=== PATIENT | male | born 1965 | race Caucasian/White ===

== ENCOUNTER 2018-08-02 09:09 | Inpatient (IN) | payer MEDICAID ==
[2018-08-02] MEDS ORDERED: Ondansetron 4 MG/2 ML SDV IVPUSH ONE (09:26)
[2018-08-02] MEDS ORDERED: Sodium Chloride 0.9% 1,000 ML IV ONE (09:26)
[2018-08-02] MEDS ORDERED: Ketorolac 15 MG/ML SDV IVPUSH ONE (09:27)
[2018-08-02] MEDS ORDERED: HYDROmorphone 1 MG/ML Syringe IVPUSH ONE ×2 (09:27→10:31)
[2018-08-02 10:23] LABS: CHLORIDE,CL 107 mmol/L (98-107); SODIUM,NA 143 mmol/L (136-145)
[2018-08-02 10:33] LABS: ANION GAP 14.8 mmol/L (10-20)
[2018-08-02] MEDS ORDERED: Iopamidol 612 MG/ML 100 ML Bottle IVPUSH ONE (10:37)
--- NOTE | 2018-08-02 10:48 | EDM.PDOC ---
ED HPI GENERAL MEDICAL PROBLEM - General Chief Complaint: Abdominal Pain Stated Complaint: ABDOMINAL PAIN Time Seen by Provider: 08/02/18 09:15 Source of Information: Reports: Patient, Family History Limitations: Reports: No Limitations - History of Present Illness INITIAL COMMENTS - FREE TEXT/NARRATIVE: Pt. presents to ER with complaints of severe abdominal pain start started at approx. 0300 this AM. It was accompanied by bilious emesis. Denies any dark colored urine or light stools. He states that he has had similar pain in the past when he had pancreatitis. Last episode was in 2012. He states that he has not been experiencing any sweats. No substernal chest pain. No shortness of breath. Pt. states that he did eat a fatty meal yesterday. He states that he has had no issues with postprandial abdominal pain. He states he still has his gallbladder. Pt. denies any bloody or dark stools/vomitus. He states that he drinks frequently (approx. 3-4 drinks per night most nights but states that he has not consumed any alcohol for 1 week. His clinic docmentation shows that he has a history of fatty liver disease. Denies any recent medications changes or additions. Onset: Today Onset Date: 08/02/18 Onset Time: 02:00 Location: Reports: Abdomen Quality: Reports: Ache, Burning, Stabbing Severity: Severe Lower Abdominal Pain Score (Numeric/FACES): 10 - Related Data Allergies Allergy/AdvReac Type Severity Reaction Status Date / Time No Known Allergies Allergy Verified 08/02/18 09:27 Home Meds: Home Meds Aspirin [Aspirin EC] 325 mg DAILY 08/02/18 [History] Halobetasol Propionate [Ultravate] 1 applic BID 08/02/18 [History] Hydrocodone/Acetaminophen [Hydrocodon-Acetaminophen 5-325] 0.5 tab PO BID [History] Lisinopril 20 mg DAILY 08/02/18 [History] Metoprolol Succinate [Toprol XL] 200 mg DAILY 08/02/18 [History] Triamcinolone Acetonide [Triamcinolone Acetonide 0.1% Crm] 1 applic BID [History] levETIRAcetam [Keppra] 500 mg BID 08/02/18 [History] ED ROS GENERAL - Review of Systems Review Of Systems: See Below Constitutional: Reports: Chills. Denies: Diaphoresis HEENT: Reports: No Symptoms Respiratory: Reports: No Symptoms Cardiovascular: Reports: No Symptoms Endocrine: Reports: No Symptoms GI/Abdominal: Reports: Abdominal Pain, Decreased Appetite, Nausea, Vomiting. Denies: Black Stool, Bloody Stool, Hematemesis, Hematochezia, Melena : Reports: No Symptoms Musculoskeletal: Reports: No Symptoms Skin: Reports: No Symptoms Neurological: Reports: No Symptoms Psychiatric: Reports: No Symptoms ED EXAM, GENERAL - Physical Exam Exam: See Below Exam Limited By: No Limitations General Appearance: Alert, WD/WN, No Apparent Distress Throat/Mouth: Normal Inspection, Normal Lips, Normal Teeth, Normal Gums, Normal Oropharynx, Normal Voice, No Airway Compromise Head: Atraumatic, Normocephalic Neck: Normal Inspection, Supple, Non-Tender, Full Range of Motion Respiratory/Chest: No Respiratory Distress, Lungs Clear, Normal Breath Sounds, No Accessory Muscle Use Cardiovascular: Normal Peripheral Pulses, Regular Rate, Rhythm, No Edema, No JVD Peripheral Pulses: 3+: Radial (L), Radial (R) GI/Abdominal: Normal Bowel Sounds, Soft, Tender, Hepatomegaly (Male) Exam: Deferred Rectal (Males) Exam: Deferred Back Exam: Normal Inspection, Full Range of Motion, NT Extremities: Normal Inspection, Normal Range of Motion, Non-Tender, No Pedal Edema, Normal Capillary Refill Neurological: Alert, Oriented, CN II-XII Intact, Normal Cognition, Normal Gait, Normal Reflexes, No Motor/Sensory Deficits Psychiatric: Normal Affect, Normal Mood Skin Exam: Warm, Dry, Intact, Normal Color, No Rash EKG INTERPRETATION Rhythm: NSR [place]: Normal P-Wave: Present QRS: Normal ST-T: Normal QT: Normal Course - Vital Signs Last Recorded V/S: Last Vital Signs Temp 36.5 C 08/02/18 09:10 Pulse 77 08/02/18 11:28 Resp 18 08/02/18 09:10 BP 94/67 08/02/18 11:28 Pulse Ox 98 08/02/18 09:10 - Orders/Labs/Meds Orders: Active Orders 24 hr Category Date Time Status Patient Status [ADT] Routine ADT 08/02/18 12:14 Ordered EKG Documentation Completion [RC] STAT Care 08/02/18 11:22 Ordered CULTURE BLOOD [BC] Stat Lab 08/02/18 09:35 Results CULTURE BLOOD [BC] Stat Lab 08/02/18 09:40 Received UA W/MICROSCOPIC [URIN] Stat Lab 08/02/18 09:21 Ordered Sodium Chloride 0.9% [Saline Flush] Med 08/02/18 09:21 Active 10 ml FLUSH ASDIRECTED PRN Blood Culture x2 Reflex Set [OM.PC] Stat Oth 08/02/18 09:24 Ordered Peripheral IV Insertion Adult [OM.PC] Routine Oth 08/02/18 09:23 Ordered Medication Orders Sodium Chloride (Saline Flush) 10 ml FLUSH ASDIRECTED PRN PRN Reason: Keep Vein Open Labs: Laboratory Tests 08/02/18 08/02/18 08/02/18 Range/Units 09:35 09:35 09:35 WBC 14.8 H (4.0-10.0) x10^3/uL RBC 3.62 L (4.5-6.0) x10^6/uL Hgb 14.6 (14.0-18.0) g/dL Hct 41.9 (40.0-52.0) % MCV 115.7 H (78.0-93.0) fL MCH 40.3 H (26.0-32.0) pg MCHC 34.8 (32.0-36.0) g/dL RDW Coeff of Charlie 13.3 (10.0-15.0) % Plt Count 306 (130-400) x10^3/uL Add Manual Diff Yes Neutrophils % (Manual) 71 (50-80) % Band Neutrophils % 10 H (0-6) % Lymphocytes % (Manual) 14 L (25-50) % Monocytes % (Manual) 5 (2-11) % Platelet Estimate Adequate Hypochromasia 1+ slight H Anisocytosis 1+ slight H Macrocytosis 3+ marked H Target Cells 1+ slight H PT 10.0 (9.6-11.4) SEC INR 1.0 L (2.0-3.5) Sodium 143 (136-145) mmol/L Potassium 3.8 (3.5-5.1) mmol/L Chloride 107 (98-107) mmol/L Carbon Dioxide 25 (21-32) mmol/L Anion Gap 14.8 (10-20) mmol/L BUN 10 (7-18) mg/dL Creatinine 0.8 (0.70-1.30) mg/dL Est Cr Clr Drug Dosing 96.85 mL/min Estimated GFR (MDRD) > 60 Glucose 115 H (74-106) mg/dL Lactic Acid (0.4-2.0) mmol/L Calcium 9.0 (8.5-10.1) mg/dL Corrected Calcium 9.56 (8.5-10.1) mg/dL Phosphorus 3.1 (2.6-4.7) mg/dL Magnesium 1.5 L (1.8-2.4) mg/dL Total Bilirubin 0.4 (0.2-1.0) mg/dL AST 25 (15-37) U/L ALT 17 (16-63) U/L Alkaline Phosphatase 86 (46-116) U/L Lactate Dehydrogenase (85-227) U/L Troponin I (<=0.056) ng/mL C-Reactive Protein 0.6 (<=0.9) mg/dL Total Protein 7.1 (6.4-8.2) g/dL Albumin 3.3 L (3.4-5.0) g/dL Globulin 3.8 Albumin/Globulin Ratio 0.87 Amylase 715 H (25-115) U/L Lipase 3480 H (73-393) U/L Ethyl Alcohol (0-3) mg/dL 08/02/18 08/02/18 08/02/18 Range/Units 09:35 09:35 09:35 WBC (4.0-10.0) x10^3/uL RBC (4.5-6.0) x10^6/uL Hgb (14.0-18.0) g/dL Hct (40.0-52.0) % MCV (78.0-93.0) fL MCH (26.0-32.0) pg MCHC (32.0-36.0) g/dL RDW Coeff of Charlie (10.0-15.0) % Plt Count (130-400) x10^3/uL Add Manual Diff Neutrophils % (Manual) (50-80) % Band Neutrophils % (0-6) % Lymphocytes % (Manual) (25-50) % Monocytes % (Manual) (2-11) % Platelet Estimate Hypochromasia Anisocytosis Macrocytosis Target Cells PT (9.6-11.4) SEC INR (2.0-3.5) Sodium (136-145) mmol/L Potassium (3.5-5.1) mmol/L Chloride (98-107) mmol/L Carbon Dioxide (21-32) mmol/L Anion Gap (10-20) mmol/L BUN (7-18) mg/dL Creatinine (0.70-1.30) mg/dL Est Cr Clr Drug Dosing mL/min Estimated GFR (MDRD) Glucose (74-106) mg/dL Lactic Acid 1.2 (0.4-2.0) mmol/L Calcium (8.5-10.1) mg/dL Corrected Calcium (8.5-10.1) mg/dL Phosphorus (2.6-4.7) mg/dL Magnesium (1.8-2.4) mg/dL Total Bilirubin (0.2-1.0) mg/dL AST (15-37) U/L ALT (16-63) U/L Alkaline Phosphatase (46-116) U/L Lactate Dehydrogenase 169 (85-227) U/L Troponin I < 0.017 (<=0.056) ng/mL C-Reactive Protein (<=0.9) mg/dL Total Protein (6.4-8.2) g/dL Albumin (3.4-5.0) g/dL Globulin Albumin/Globulin Ratio Amylase (25-115) U/L Lipase (73-393) U/L Ethyl Alcohol < 3 (0-3) mg/dL Meds: Medications Generic Name Dose Route Start Last Admin Trade Name Freq PRN Reason Stop Dose Admin Sodium Chloride 10 ml 08/02/18 09:21 Saline Flush FLUSH ASDIRECTED PRN Keep Vein Open Discontinued Medications Generic Name Dose Route Start Last Admin Trade Name Freq PRN Reason Stop Dose Admin Hydromorphone HCl 1 mg 08/02/18 09:27 08/02/18 09:39 Dilaudid IVPUSH 08/02/18 09:28 1 mg ONETIME ONE Administration Hydromorphone HCl 1 mg 08/02/18 10:31 08/02/18 10:49 Dilaudid IVPUSH 08/02/18 10:32 1 mg ONETIME ONE Administration Sodium Chloride 1,000 mls @ 1,000 mls/hr 08/02/18 09:26 08/02/18 09:38 Normal Saline IV 08/02/18 10:25 1,000 mls/hr .BOLUS ONE Administration Iopamidol 100 ml 08/02/18 10:37 08/02/18 10:41 Isovue-300 (61%) IVPUSH 08/02/18 10:38 100 ml ONETIME ONE Administration Ketorolac Tromethamine 15 mg 08/02/18 09:27 08/02/18 09:43 Toradol IVPUSH 08/02/18 09:28 15 mg ONETIME ONE Administration Ondansetron HCl 4 mg 08/02/18 09:26 08/02/18 09:44 Zofran IVPUSH 08/02/18 09:27 4 mg ONETIME ONE Administration - Radiology Interpretation Free Text/Narrative:: uncomplicated pancreatitis - Re-Assessments/Exams Free Text/Narrative Re-Assessment/Exam: Pt. was given Zofran for nausea and pain was treated with dilaudid and toradol. Departure - Departure Time of Disposition: 12:17 Disposition: Admitted As Inpatient 64 Clinical Impression: Pancreatitis - Discharge Information Referrals: Archana Holcomb MD [Primary Care Provider] - Forms: ED Department Discharge - Problem List Review Problem List Initiated/Reviewed/Updated: Yes - My Orders Last 24 Hours: My Active Orders 08/02/18 09:21 UA W/MICROSCOPIC [URIN] Stat Sodium Chloride 0.9% [Saline Flush] 10 ml FLUSH ASDIRECTED PRN 08/02/18 09:23 Peripheral IV Insertion Adult [OM.PC] Routine 08/02/18 09:24 Blood Culture x2 Reflex Set [OM.PC] Stat 08/02/18 09:35 CULTURE BLOOD [BC] Stat 08/02/18 09:40 CULTURE BLOOD [BC] Stat 08/02/18 11:22 EKG Documentation Completion [RC] STAT 08/02/18 12:14 Patient Status [ADT] Routine - Assessment/Plan Last 24 Hours: My Active Orders 08/02/18 09:21 UA W/MICROSCOPIC [URIN] Stat Sodium Chloride 0.9% [Saline Flush] 10 ml FLUSH ASDIRECTED PRN 08/02/18 09:23 Peripheral IV Insertion Adult [OM.PC] Routine 08/02/18 09:24 Blood Culture x2 Reflex Set [OM.PC] Stat 08/02/18 09:35 CULTURE BLOOD [BC] Stat 08/02/18 09:40 CULTURE BLOOD [BC] Stat 08/02/18 11:22 EKG Documentation Completion [RC] STAT 08/02/18 12:14 Patient Status [ADT] Routine Plan: Pt. will be admitted acutely. His Gilbert score is [address] scan is consistent with uncomplicated pancreatitis. Pain was managed with IV dilaudid and toradol. Dr. Holcomb is his primary and will be admitting the patient.
--- NOTE | 2018-08-02 11:23 | CT ---
[id number] CT/CT Chest Abdomen Pelvis W IV EXAM: CT Chest Abdomen Pelvis W IV CLINICAL DATA: ABDOMINAL PAIN. COMPARISON STUDY: None. FINDINGS: Changes of apical predominant paraseptal and centrilobular emphysema. No suspicious nodules or masses. No edema, pneumonia, or pneumothorax. Coronary artery atherosclerosis. No pericardial effusion. Thoracic aorta is normal in caliber. Abdomen and pelvis: Moderate amount of fat stranding in the upper abdomen, centered at the pancreas. Findings include a more focal area edema interposed between the pancreatic head and duodenum. Findings are most consistent with sequela of acute pancreatitis. No evidence of pancreas necrosis. No splenic artery aneurysm or thrombosis. No pseudocyst. There is mild dilation of the proximal duodenum adjacent to the pancreas, which could represent focal ileus as sequela of pancreatitis. Free fluid does extend into the dependent recesses of the pelvis. Liver, gallbladder, spleen, adrenal glands, and kidneys are unremarkable. Urinary bladder wall is diffusely thickened. Findings are nonspecific but likely sequela of chronic all obstruction from the enlarged prostate gland. No lymphadenopathy in the abdomen or pelvis. Bones and soft tissues: No fracture, compression deformity, or osseous lesion. IMPRESSION: Changes in the abdomen most consistent with sequela of acute uncomplicated pancreatitis, described in detail above. No other significant abnormality in the chest, abdomen, or pelvis. Waylon Fields MD 08/02/18 1120 Thank you for allowing us to participate in the care of your patient.
[2018-08-02] MEDS ORDERED: Ondansetron 4 MG/2 ML SDV IV PRN (12:40)
[2018-08-02] MEDS ORDERED: Dextrose 5%-Lact Ringers w/KCl 1,000 ML IV SCH (13:00)
[2018-08-02] MEDS: Pantoprazole 40 MG Vial IVPUSH SCH ×2 (13:14→20:02)
[2018-08-02] MEDS: HYDROmorphone 1 MG/ML Syringe IVPUSH PRN ×3 (13:14→22:31)
[2018-08-02] MEDS: Nicotine 21 MG/24 Hr Patch TRDERM SCH (13:20)
[2018-08-02] MEDS: Dextrose 5%-Lactated Ringers 1,000 ML IV SCH ×2 (13:37→20:06)
--- NOTE | 2018-08-02 19:38 | HP ---
CHIEF COMPLAINT: Abdominal pain. HISTORY OF PRESENT ILLNESS: The patient is a 52-year-old patient of mine who presented to the emergency room today with severe abdominal pain that started at 3 this morning. He was having green bilious emesis. Denies any dark-colored urine or stools. He has had similar problems in the past in 2013. He had last been hospitalized with pancreatitis. He does consume alcohol daily, but has not drank for 5 days. Not certain why he has not drank for 5 days. He did have a fatty meal yesterday. He has not had any new medications changed recently. The patient also is on chronic narcotics and does smoke as well. He does have a documented history of fatty liver disease. The patient was seen in the ER by Kin Méndez. His temperature is 36.5, pulse 77, blood pressure is 94/67 after receiving Dilaudid. Physical exam; in the ER, he was noted to have normal bowel sounds. Soft, tender abdomen with hepatomegaly noted. No bruises. No telangiectasia noted. EKG showed normal sinus rhythm. LABORATORY DATA: Showed white blood cell count 14.8, hemoglobin 14.6, platelet count 306 with 71 segs, 10 bands, 14 lymphocytes. INR 1. Sodium 143, potassium 3.8, BUN 10, creatinine 0.8, GFR greater than 60, glucose 115, calcium 9, phosphorus 3.1, magnesium 1.5, total bili 0.4, AST 25, ALT was 17, alk phos was 86. Amylase 715, normal 115 or less. Lipase 3480, normal is 339 or less. Lactic acid normal at 1.2. LDH normal at 169, normal is 227 or less. Blood alcohol less than 0.3. The patient had a CT scan of his abdomen done in the ER, which showed sequelae of acute uncomplicated pancreatitis with fat stranding in the upper abdomen centered at the pancreas. Findings include a more local area of edema interposed between pancreatic head and duodenum. Mild dilation of proximal duodenum. Free fluid extending into the dependent recesses of the pelvis. Urinary bladder wall diffusely thickened possibly and enlarged prostate gland. In the ER, the patient received Dilaudid I believe 1 mg x2 doses as well as Zofran as well as Toradol 15 mg IV push. To note, his mother states that he does have more concerning problems with drinking alcohol. When he was seen in the ER, when asked about code level status, he just said he did not want to get resuscitated and did not want to be intubated. To note, the patient does have chronic ankle pain of which he does take hydrocodone 5/325, he takes a half a pill twice a day, so dose was quite reduced to that. PAST MEDICAL HISTORY: He has hypertension, which he takes lisinopril, metoprolol, and hydrochlorothiazide for. He has hypercholesterolemia, which he manages with diet. He is noted to have macrocytosis. He has had previous vitamin B12 level, normal on 06/15/2017. He has had a GGTP level last checked on 06/05/2017, was 66, but on 02/22/2017, had been up to 112. He has had thyroid testing done on 09/27/2017, where it was normal at 1.24. The patient has chronic pain of his ankle, which he uses hydrocodone. He has had alcohol- induced pancreatitis in the past in 2012. He has intrinsic eczema. He does smoke tobacco. He has had macular degeneration of his retina. He has had cataracts. He has had closed fracture of his phalanx. Had continued use of opioids. His left ankle pain was on 07/04/2008. He had surgery. He has had some withdrawal tremors noted in 2009, where he had used Ativan. Blackout versus DTs noted. Neuropathy unclear. He has poor dentition. He has teeth extracted in 2015. 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 PAST SURGICAL HISTORY: He has had ankle fracture surgery in 2008, cataract extraction bilaterally. He has had laser surgery bilaterally. He has had left knee cartilage surgery in 1992. FAMILY MEDICAL HISTORY: Mother has had COPD. Brother has had pancreatitis, when he was 58. Brother had alcohol abuse. There is diabetes in a brother. SOCIAL HISTORY: The patient is single. He has 1 child. He went through 10 years of education. He has been on disability because of his eye problems. Tobacco, he smokes 1 pack a day. On 09/26/2017, he had a 13-ommb-oplg history. Alcohol use, he has he states 2-3 alcoholic drinks a day. REVIEW OF SYSTEMS: His weight has been the same. No fever or chills. Does have pain in his back as well as pain in his ankle. No bruising. No problems with nose bleeds. No weakness. OBJECTIVE: Vital Signs: The patient's blood pressure is 159/106 on initial presentation and did improve to 194/67, respirations are 18, sats are 98%, temperature is 36.5, weight 64.8 kg, pulse is 86. Skin: [place], warm, and dry. HEENT: He has a lazy eye. He has thick glasses. Mucous membranes are moist. Neck: No anterior cervical lymphadenopathy. Neck is supple. HEART: Regular rate and rhythm without murmurs or bruits. Lungs: Clear to auscultation. Abdomen: Soft. After pain shots, there was minimal epigastric tenderness. Liver edge does appear to be slightly enlarged. Rectal/Genital: Deferred. Extremities: Slender, thin. Does have deformity in his right ankle. Neurologic: He moves all extremities symmetric. Psych: He does appear to be sad. IMPRESSION: 1. Acute pancreatitis. 2. Intractable nausea, vomiting secondary to acute pancreatitis. 3. Alcohol use. 4. Chronic pain, on chronic narcotics. 5. Hypertension. 6. Hypomagnesemia. 7. Macrocytosis secondary to alcohol use. 8. Hypercholesterolemia. PLAN: The patient will be admitted to acute care. He will be n.p.o. He will be placed on parenteral Dilaudid for pain control. Also, place him on IV Protonix to help with stomach. He will be on p.r.n. Zofran. We will check serial labs on him. Do anticipate being able to start refeeding him. We will add nicotine patch to the patient for tobacco withdrawal. We will place him on thiamine. Also, may need to have an anxiolytic, but we will watch to see if he has symptoms of withdrawal and would like to try to coordinate for the patient to get into CD counseling after his discharge. Also, we will repeat CT scan of his abdomen possibly in 2-3 days to see followup of status of his pancreas. If the patient's condition would worsen, he would need transfer to [facility] in [place]. To note, his code level status per his wishes are do not resuscitate, do not intubate. We will also have the patient get screened for depression. We will also check a urine drug screen on him as he has not been able to give a urine sample yet as well as a GGT level, B12 level, and a Keppra level. GM08/02/2018 14:04:28 MODL: 08/02/2018 19:32:32 /[id number]
[2018-08-02] MEDS: Thiamine 100 MG Tab PO SCH (20:02)
[2018-08-02] MEDS: levETIRAcetam 500 MG Tab PO SCH (20:03)
[2018-08-02] MEDS: Triamcinolone Acetonide 0.1% Crm 15 GM Tube TOP SCH (20:03)
[2018-08-02] MEDS: Sodium Chloride 0.9% 10 ML Syringe FLUSH PRN (20:09)
[2018-08-03] MEDS: HYDROmorphone 1 MG/ML Syringe IVPUSH PRN ×5 (02:35→22:04)
[2018-08-03] MEDS: Dextrose 5%-Lactated Ringers 1,000 ML IV SCH ×3 (02:47→18:38)
[2018-08-03] MEDS: Pantoprazole 40 MG Vial IVPUSH SCH ×2 (07:56→19:54)
[2018-08-03] MEDS: Lisinopril 20 MG Tab PO SCH (07:56)
[2018-08-03] MEDS: levETIRAcetam 500 MG Tab PO SCH ×2 (07:56→19:54)
[2018-08-03] MEDS: Cyanocobalamin (Vitamin B12) 250 MCG Tab PO SCH (07:56)
[2018-08-03] MEDS: Metoprolol Succinate 50 MG Tab.ER PO SCH (07:57)
[2018-08-03] MEDS: Triamcinolone Acetonide 0.1% Crm 15 GM Tube TOP SCH ×2 (08:14→19:54)
[2018-08-03 08:32] LABS: ANION GAP 10.6 mmol/L (10-20); CHLORIDE,CL 105 mmol/L (98-107); SODIUM,NA 141 mmol/L (136-145)
[2018-08-03] MEDS ORDERED: Magnesium Sulfate/Water 2 GM in Premix Bag 1 BAG IV ONE (09:47)
[2018-08-03] MEDS: Magnesium Oxide 400 MG Tab PO SCH (09:56)
[2018-08-03] MEDS: Nicotine 21 MG/24 Hr Patch TRDERM SCH (12:11)
[2018-08-03] MEDS: Acetaminophen/HYDROcodone 325-5 MG Tab PO PRN (15:11)
[2018-08-03] MEDS ORDERED: HYDROmorphone 1 MG/ML Syringe IVPUSH PRN (18:31)
[2018-08-03] MEDS ORDERED: LORazepam 2 MG/ML SDV IVPUSH PRN (18:32)
[2018-08-03] MEDS ORDERED: diphenhydrAMINE 50 MG/ML SDV IVPUSH PRN (18:34)
[2018-08-03] MEDS: Thiamine 100 MG Tab PO SCH (19:54)
[2018-08-03] MEDS: Sodium Chloride 0.9% 10 ML Syringe FLUSH PRN (19:59)
[2018-08-04] MEDS: Dextrose 5%-Lactated Ringers 1,000 ML IV SCH ×3 (01:26→16:21)
[2018-08-04] MEDS: HYDROmorphone 1 MG/ML Syringe IVPUSH PRN ×3 (03:06→18:46)
[2018-08-04] MEDS: Triamcinolone Acetonide 0.1% Crm 15 GM Tube TOP SCH ×2 (08:00→20:30)
[2018-08-04] MEDS: Metoprolol Succinate 50 MG Tab.ER PO SCH (08:14)
[2018-08-04] MEDS: Pantoprazole 40 MG Vial IVPUSH SCH ×2 (08:17→20:29)
[2018-08-04] MEDS: Cyanocobalamin (Vitamin B12) 250 MCG Tab PO SCH (08:17)
[2018-08-04] MEDS: Lisinopril 20 MG Tab PO SCH (08:17)
[2018-08-04] MEDS: Magnesium Oxide 400 MG Tab PO SCH (08:17)
[2018-08-04] MEDS: levETIRAcetam 500 MG Tab PO SCH ×2 (08:17→20:30)
[2018-08-04 08:28] LABS: CHLORIDE,CL 105 mmol/L (98-107); SODIUM,NA 141 mmol/L (136-145)
[2018-08-04] MEDS ORDERED: Iopamidol 612 MG/ML 100 ML Bottle IVPUSH ONE (10:18)
--- NOTE | 2018-08-04 11:01 | PCM.SN ---
- Free Text/Narrative Note: Labs reviewed from today, K at 3.0, Mag improving to 1.7, lipase back to normal , CT report pending, but mild fluid on lungs. Will reduce IV rate, will add po KCL20 mEq daily, will leave Mag same., will space out dilauidid to q 6hr prn.
[2018-08-04] MEDS: Potassium Chloride 20 MEQ Tab.ER PO SCH ×2 (12:02→12:31)
[2018-08-04] MEDS: Nicotine 21 MG/24 Hr Patch TRDERM SCH ×2 (12:02→12:33)
[2018-08-04] MEDS ORDERED: LORazepam 2 MG/ML SDV IVPUSH PRN (12:11)
[2018-08-04] MEDS: Acetaminophen/HYDROcodone 325-5 MG Tab PO PRN (16:24)
[2018-08-04] MEDS: Thiamine 100 MG Tab PO SCH (20:30)
[2018-08-04] MEDS: Sodium Chloride 0.9% 10 ML Syringe FLUSH PRN (20:32)
[2018-08-05] MEDS: HYDROmorphone 1 MG/ML Syringe IVPUSH PRN (05:46)
[2018-08-05] MEDS: Dextrose 5%-Lactated Ringers 1,000 ML IV SCH (05:48)
[2018-08-05 07:47] LABS: CHLORIDE,CL 106 mmol/L (98-107); SODIUM,NA 141 mmol/L (136-145)
[2018-08-05 07:48] LABS: ANION GAP 9.2 mmol/L (10-20)
[2018-08-05] MEDS: Metoprolol Succinate 50 MG Tab.ER PO SCH (07:50)
[2018-08-05] MEDS: Cyanocobalamin (Vitamin B12) 250 MCG Tab PO SCH (07:50)
[2018-08-05] MEDS: Potassium Chloride 20 MEQ Tab.ER PO SCH ×2 (07:50→17:23)
[2018-08-05] MEDS: levETIRAcetam 500 MG Tab PO SCH ×2 (07:50→19:30)
[2018-08-05] MEDS: Triamcinolone Acetonide 0.1% Crm 15 GM Tube TOP SCH ×2 (07:51→19:31)
[2018-08-05] MEDS: Lisinopril 20 MG Tab PO SCH (07:51)
[2018-08-05] MEDS: Pantoprazole 40 MG Vial IVPUSH SCH (07:51)
[2018-08-05] MEDS: Magnesium Oxide 400 MG Tab PO SCH (07:51)
--- NOTE | 2018-08-05 08:02 | CT ---
[id number] CT/CT Abdomen W IV EXAM: CT Abdomen W IV CLINICAL DATA: FOLLOW-UP PANCREATITIS. COMPARISON STUDY: CT chest abdomen pelvis August 02, 2018. FINDINGS: New small bilateral pleural effusions with associated compressive atelectasis. Moderate amount of fat stranding in the upper abdomen, centered at the pancreas is again identified. Overall, this is decreased when compared to the prior study. The pancreas enhances uniformly without evidence of necrosis. No splenic artery aneurysm or thrombosis. No portal venous thrombosis. Again identified is thickening of the proximal duodenum adjacent to the pancreas likely reactive. There is free fluid within the dependent portions of the abdomen especially in a perihepatic distribution. No fluid collections. Calcifications within the pancreatic head likely sequela of chronic pancreatitis. Liver, spleen, gallbladder, adrenal glands, and kidneys are unremarkable. No bowel obstruction or inflammation. No free fluid or pneumoperitoneum. Numerous prominent mesenteric lymph nodes none of which are pathologically enlarged by CT size criteria. Scattered changes of spondylosis the spine. No fracture or osseous lesion. IMPRESSION: 1. Findings again suggest acute on chronic pancreatitis. Multi phase imaging demonstrates uniform enhancement without evidence of necrosis. No splenic artery aneurysm or portal venous thrombosis. There is no fluid collection at this time. Free fluid persists within the abdomen especially in the perihepatic distribution. 2. New small bilateral pleural effusions with associated compressive atelectasis. 3. Thickening of the 1st portion of duodenum adjacent to the pancreas is likely reactive. No evidence of obstruction at this time. Sergio Norman DO 08/04/18 1102 Thank you for allowing us to participate in the care of your patient.
--- NOTE | 2018-08-05 08:02 | PN ---
Progress Note for JAYNA MASON Date: 08/03/2018 Room #: VM.206 SUBJECTIVE: This is hospital day #2 of Rashaun Mason admitted for pancreatitis. Yesterday, the patient has had a known history of alcohol use. His lipase was quite elevated yesterday as well. He had abnormal findings on CT scan. The patient is still having significant amount of pain and does look to use his pain shot every 4 hours to help with control. I did start IV Protonix as well. The patient is using the nicotine patch, has not had any problems with nicotine withdrawal. OBJECTIVE: Vital Signs: Objectively, his weight is 68.6 kg, which is up 5 kg from yesterday. His pulse is 84, blood pressure is 116/80, respiratory rate is 18, sats are 93%. General: Objectively, he appears in mild discomfort. Skin: [place], warm, and dry. Heart: Regular rate and rhythm. Lungs: Clear to auscultation. Abdomen: He has bowel sounds present. His abdomen is tender in the epigastric area, but no guarding. Also, he is tender in the right upper quadrant. Extremities: Lower extremities, no edema. LABORATORY DATA: Lab today shows his white blood cell count has improved to 12.1, hemoglobin has dropped slightly to 12.5, platelet count is 293. Sodium is 141, potassium 3.6, creatinine is 0.7, BUN is 5, GFR is greater than 60. Blood sugar is 116. Magnesium has dropped to 1.4. GGT was 29. AST is 21, ALT 13, alkaline phosphatase 71, total bilirubin is 0.5, albumin is 2.8. Amylase has improved to 221, lipase has improved to 668. Vitamin B12 yesterday was low at 300. Urinalysis was checked yesterday which showed reduced specific gravity 1.005, pH was 5, was normal. Urine drug screen was negative. IMPRESSION: 1. Acute pancreatitis. 2. Dyspepsia. 3. Hypertension. 4. Chronic ankle pain. 5. Hypomagnesemia. 6. Vitamin B12 deficiency. PLAN: We will place the patient on oral magnesium as well as give another IV bolus of magnesium. We will continue the IV fluids. We will continue the IV Protonix. We will place on oral vitamin B12 supplementation. He was started on thiamine yesterday as well. We will advance his diet to clear liquids. He is on oral vitamin B12 right now and the patient was encouraged to be up moving around. He also can have oral pain pills of his hydrocodone to see if that also helps with some pain. Tomorrow, we will recheck a CT of his pancreas to see how it is evolving with his pancreatitis. If he does not tolerate oral fluids, we will need to place him back on n.p.o. GM08/03/2018 10:02:56 MODL: 08/03/2018 10:33:39 /[id number]
--- NOTE | 2018-08-05 08:02 | PN ---
Progress Note for JAYNA DUDLEY Date: 08/04/2018 Room #: VM.206 SUBJECTIVE: Today is the 3rd day of hospitalization. He did tolerate clear liquids. He states his pain is about the same. He did try the oral pain medications, which did not help much, but he did use the Dilaudid, which he uses every 4 hours. OBJECTIVE: Vital Signs: Objectively, his temperature is 36.8, pulse 66, blood pressure is 142/85, respirations are 18, and sats are 96%. General: Objectively, he is looking more alert, more comfortable today. Heart: Regular rate and rhythm. Lungs: Clear to auscultation. Abdomen: Bowel sounds are present. Abdomen does show some epigastric tenderness, but not as much as yesterday. No rebound noted. Extremities: His right elbow just has minimal erythema. Lower extremities, no edema. LABORATORY DATA: Lab is pending yet today. IMPRESSION: 1. Acute pancreatitis. 2. Dyspepsia. 3. Intractable pain. 4. Chronic pain syndrome. 5. Hypertension. PLAN: We will await lab work from this morning. The patient will be having a repeat CT scan today. We will have Dr. Ira Marina cover the patient in my absence. GM08/04/2018 07:38:35 MODL: 08/04/2018 09:36:56 /[id number]
[2018-08-05] MEDS ORDERED: LORazepam 0.5 MG Tab PO PRN (12:43)
[2018-08-05] MEDS: Nicotine 21 MG/24 Hr Patch TRDERM SCH (12:54)
[2018-08-05] MEDS: Enoxaparin 40 MG/0.4 ML Syringe SUBCUT SCH (12:55)
--- NOTE | 2018-08-05 13:39 | PN ---
Progress Note for JAYNA DUDLEY Date: 08/05/2018 Room #: VM.206 SUBJECTIVE: A 52-year-old admitted with acute pancreatitis. He said he had an episode about 5 years ago. He said he had been drinking alcohol for about a week before coming in. He is still having some intermittent pain that comes and goes. He got some IV Dilaudid this morning, but then was able to eat his clear liquid breakfast and has not had any pain or nausea since. He has been voiding okay. He has had bowel movements. No blood in there. He otherwise does take hydrocodone chronically for some ankle pain. He is on magnesium and potassium replacements. He is not having any cough. No trouble with breathing. OBJECTIVE: VITAL SIGNS: His weight 68.1 kg, temperature 98, pulse 75, blood pressure 124/88, respiratory rate 20, O2 99 on room air. GENERAL: He is in no acute distress. HEART: Regular rate and rhythm without murmur. LUNGS: Sounds are clear to auscultation bilaterally without crackles or wheezes. ABDOMEN: Positive bowel sounds in all 4 quadrants, it is nondistended, but does have tenderness especially in the suprapubic area. On initial exam, the epigastric area was okay, but then he stated it is also tender there. His legs had no edema. He has otherwise alert and orientated x3. He is not depressed or anxious. LABORATORY DATA: Lab work today does show his hemoglobin stable at 12, white count down to 10, platelets 296. Sodium 141, potassium 3.2, chloride 106, bicarb 29, BUN 3, creatinine 0.6, glucose 82, ALT 12, AST 21, bilirubin 0.4, alkaline phosphatase 130, albumin 2.5, lipase 152. ASSESSMENT: 1. Acute pancreatitis. Primary care felt this was probably due to alcohol. 2. Abdominal pain due to pancreatitis. We will repeat a UA today to rule out any bladder infection. We will also do a bladder scan. 3. Chronic pain syndrome. We will discontinue his Dilaudid and place him back on his home hydrocodone. 4. Essential hypertension. He is currently on home medications of lisinopril and blood pressures are under control. He is also on metoprolol. 5. Hypokalemia and hypomagnesemia. Replacing p.o. I will increase to twice daily on the potassium and recheck tomorrow. 6. Smoking. He is on a nicotine patch. 7. History of alcohol use. He does have some Ativan available, has not used any since yesterday. 8. DVT prophylaxis. He has been up walking in the halls, but I will get him started on some Lovenox today. PLAN: At this point, the patient is improving. We will advance his diet to soft foods. I anticipate that if things go well, he will be stable for discharge tomorrow. Otherwise, I will discontinue his IV and his IV fluids and his IV pain medication. Physical therapy has also been ordered. MKA: 08/05/2018 12:45:36 MODL: 08/05/2018 13:29:32 /[id number]
[2018-08-05] MEDS: Pantoprazole 40 MG Tab.CR PO SCH (17:23)
[2018-08-05] MEDS: Thiamine 100 MG Tab PO SCH (19:28)
[2018-08-05] MEDS: Acetaminophen/HYDROcodone 325-5 MG Tab PO PRN (19:28)
[2018-08-05] MEDS: Sodium Chloride 0.9% 10 ML Syringe FLUSH PRN (19:30)
[2018-08-06] MEDS: Pantoprazole 40 MG Tab.CR PO SCH (06:15)
[2018-08-06 07:20] LABS: CHLORIDE,CL 106 mmol/L (98-107); SODIUM,NA 143 mmol/L (136-145)
[2018-08-06] MEDS: Magnesium Oxide 400 MG Tab PO SCH (08:10)
[2018-08-06] MEDS: levETIRAcetam 500 MG Tab PO SCH (08:28)
[2018-08-06] MEDS: Potassium Chloride 20 MEQ Tab.ER PO SCH (08:28)
[2018-08-06] MEDS: Lisinopril 20 MG Tab PO SCH (08:28)
[2018-08-06] MEDS: Cyanocobalamin (Vitamin B12) 250 MCG Tab PO SCH (08:29)
[2018-08-06] MEDS: Metoprolol Succinate 50 MG Tab.ER PO SCH (08:29)
[2018-08-06] MEDS: Triamcinolone Acetonide 0.1% Crm 15 GM Tube TOP SCH (08:30)
[2018-08-06] MEDS: Acetaminophen/HYDROcodone 325-5 MG Tab PO PRN (08:35)
[2018-08-06] MEDS: Nicotine 21 MG/24 Hr Patch TRDERM SCH (14:35)
[2018-08-06] MEDS: Enoxaparin 40 MG/0.4 ML Syringe SUBCUT SCH (14:35)
--- NOTE | 2018-08-06 17:16 | DISCH ---
PRIMARY DISCHARGE DIAGNOSES: 1. Acute pancreatitis, presumed due to alcohol. He had previously about 5 years ago. 2. Abdominal pain due to pancreatitis, improving, but about a 5/10, eating well. 3. Chronic pain syndrome due to ankle pain. He is on hydrocodone as an outpatient. 4. Essential hypertension. 5. Hypokalemia and hypomagnesemia, replaced. 6. Alcohol use. He drinks about 3 beers daily. Staffing Account Manager did meet with him. He will consider doing Alcoholic Anonymous. 7. Smoking. 8. Deep venous thrombosis prophylaxis. He was on Lovenox. REASON FOR ADMISSION: On the date of admission, this 52-year-old presented to his healthcare providers with abdominal pain. He had an elevated lipase. He was diagnosed with pancreatitis. He underwent a CT scan which did show pancreatitis but no pseudocyst or abscess. He gradually improved, and he was advanced on his diet. He was receiving some IV Dilaudid but that was discontinued yesterday morning, and he has only used 1 oral hydrocodone in the last 24 hours. He is having bowel movements. No blood in his stools. Eating 100% of his meals, having good intake and output. Up in the halls walking. Therefore, decision was made to discharge home for followup in the clinic. He did receive vitamins during his stay like thiamine. His electrolytes were well replaced and his hemoglobin was 13.4. On discharge, white count slightly elevated at 11.2, he had no sign of infection, never was on antibiotics. Sodium 143, potassium 4, chloride 106, bicarbonate 29, BUN 4, creatinine 0.7, and magnesium 1.8. DISCHARGE PLANS AND INSTRUCTIONS: Follow up with Dr. Holcomb on 08/12/2018 at 2 p.m. He has pain pills at home. If he needs any refills, he should have them at the pharmacy. If not, he will notify us. He will be on potassium and magnesium supplements once daily until his followup. He will have a CBC, BMP, and magnesium at that point. He will be on a low-fat, no alcohol diet. He will take Prilosec if needed for heartburn. He did receive Protonix during his stay here. PHYSICAL EXAMINATION: Vital Signs: Discharging vitals include a temperature 99, pulse 85, blood pressure 118/68, respiratory rate 20, and O2 of 99 on room air. General: He is in no acute distress. Heart: Regular rate and rhythm. S1, S2, without murmur. Lungs: Lungs sounds are clear to auscultation bilaterally. No crackles or wheezes. Abdomen: Positive bowel sounds. Soft, nontender. Extremities: Warm and dry, no edema. Mental Status: Alert and orientated x3. MKA: 08/06/2018 15:59:42 MODL: 08/06/2018 17:05:33 /[id number]
== END 2018-08-06 11:59 | disposition home or self-care (01) | DRG 439 ==
LOC: VM.ED 09:09 → VM.MS 12:22
PROVIDERS: ADMIT Family Medicine; ATTEND Family Medicine
PROC: HZ2ZZZZ Detoxification Services for Substance Abuse Treatment (ICD-10-PCS; principal; 2018-08-02)
DX: K85.20 Alcohol induced acute pancreatitis without necrosis or infection (principal); F10.288 Alcohol dependence with other alcohol-induced disorder; Z66 Do not resuscitate; G89.4 Chronic pain syndrome; I10 Essential (primary) hypertension; E87.6 Hypokalemia; E83.42 Hypomagnesemia; E78.00 Pure hypercholesterolemia, unspecified; D75.89 Other specified diseases of blood and blood-forming organs; H35.30 Unspecified macular degeneration; H26.9 Unspecified cataract; G62.9 Polyneuropathy, unspecified; G40.909 Epilepsy, unspecified, not intractable, without status epilepticus; F17.210 Nicotine dependence, cigarettes, uncomplicated; Z98.42 Cataract extraction status, left eye; Z98.41 Cataract extraction status, right eye; Z98.890 Other specified postprocedural states; Z79.82 Long term (current) use of aspirin; Z79.899 Other long term (current) drug therapy
CPT/HCPCS: 36415; 51798; 71260; 74160; 74177; 80048; 80053; 80177; 80305-QW; 81001; 81003; 82150; 82607; 82962; 82977; 83605; 83615; 83690; 83735; 84100; 84484; 85007; 85025; 85027; 85610; 86140; 87040; 93005; 96361; 96374; 96375; 96376; 97161-GP; 99285; A9270-GY; C9113; G0480; J1170; J1650; J1885; J2060; J2405; J3475; J7030; J7042; Q9967

== ENCOUNTER 2018-08-21 21:38 | Inpatient (IN) | payer MEDICAID ==
[2018-08-21] MEDS ORDERED: HYDROmorphone 1 MG/ML Syringe IVPUSH ONE ×2 (21:45→22:29)
[2018-08-21] MEDS ORDERED: Ondansetron 4 MG/2 ML SDV IVPUSH ONE (21:45)
[2018-08-21] MEDS ORDERED: Sodium Chloride 0.9% 1,000 ML IV ONE (21:45)
--- NOTE | 2018-08-21 22:39 | EDM.PDOC ---
ED HPI GENERAL MEDICAL PROBLEM - General Chief Complaint: Abdominal Pain Stated Complaint: Upper abdominal pain Time Seen by Provider: 08/21/18 21:44 Source of Information: Reports: Patient History Limitations: Reports: No Limitations - History of Present Illness INITIAL COMMENTS - FREE TEXT/NARRATIVE: Patient presents with complaints of upper abdominal pain, nausea and vomiting that started today around 12 pm. He was recently admitted for an acute pancreatitis 08/02/18. Dr. Holcomb is primary and did attend him at that time. He states he was here for 5 days. Pain starts on right side with general radiation throughout the abdominal region. No back pain. Denies chest pain, SOB, blood in urine or stool. Denies fever or chills. He denies any alcohol use. States his first pancreatitis episode was 3 years ago. Rates pain a . Onset: Today, Sudden Duration: Getting Worse Location: Reports: Abdomen Quality: Reports: Ache, Same as Previous Episode Severity: Severe Improves with: Reports: Medication Worsens with: Reports: Eating, Movement Associated Symptoms: Reports: Nausea/Vomiting upper abdomen Pain Score (Numeric/FACES): 10 - Related Data Allergies Allergy/AdvReac Type Severity Reaction Status Date / Time No Known Allergies Allergy Verified 08/21/18 22:02 Home Meds: Home Meds Aspirin [Aspirin EC] 325 mg DAILY 08/02/18 [History] Halobetasol Propionate [Ultravate] 1 applic BID 08/02/18 [History] Hydrocodone/Acetaminophen [Hydrocodon-Acetaminophen 5-325] 0.5 tab PO BID [History] Lisinopril 20 mg DAILY 08/02/18 [History] Metoprolol Succinate [Toprol XL] 200 mg DAILY 08/02/18 [History] Triamcinolone Acetonide [Triamcinolone Acetonide 0.1% Crm] 1 applic BID [History] levETIRAcetam [Keppra] 500 mg BID 08/02/18 [History] Past Medical History HEENT History: Reports: Cataract, Glaucoma, Macular Degeneration Cardiovascular History: Reports: High Cholesterol, Hypertension Gastrointestinal History: Reports: Pancreatitis Neurological History: Reports: Seizure Psychiatric History: Reports: Other (See Below) Other Psychiatric History: Chronic alcohol abuse, tobacco use, and chronic use of opioids Hematologic History: Reports: Other (See Below) Other Hematologic History: high liver enzymes. macrocytosis Dermatologic History: Reports: Eczema - Past Surgical History Musculoskeletal Surgical History: Reports: Other (See Below) Other Musculoskeletal Surgeries/Procedures:: closed fx of distal phalanx of phalanges of hand Social & Family History - Caffeine Use Caffeine Use: Reports: Soda ED ROS GENERAL - Review of Systems Review Of Systems: See Below Constitutional: Reports: No Symptoms HEENT: Reports: No Symptoms Respiratory: Reports: No Symptoms Cardiovascular: Reports: No Symptoms Endocrine: Reports: No Symptoms GI/Abdominal: Reports: Abdominal Pain, Nausea, Vomiting : Reports: No Symptoms Musculoskeletal: Reports: No Symptoms Skin: Reports: No Symptoms Neurological: Reports: No Symptoms Psychiatric: Reports: No Symptoms Hematologic/Lymphatic: Reports: No Symptoms Immunologic: Reports: No Symptoms ED EXAM, GI/ABD - Physical Exam Exam: See Below Exam Limited By: No Limitations General Appearance: Alert, WD/WN, Mild Distress Eyes: Bilateral: Normal Appearance, EOMI Ears: Normal TMs Nose: Normal Inspection, Normal Mucosa, No Blood Throat/Mouth: Normal Inspection, Normal Lips, Normal Teeth, Normal Gums, Normal Oropharynx, Normal Voice, No Airway Compromise Head: Atraumatic, Normocephalic Neck: Normal Inspection, Supple, Non-Tender, Full Range of Motion Respiratory/Chest: No Respiratory Distress, Lungs Clear, Normal Breath Sounds, No Accessory Muscle Use, Chest Non-Tender Cardiovascular: Normal Peripheral Pulses, Regular Rate, Rhythm, No Edema, No Gallop, No JVD, No Murmur, No Rub GI/Abdominal Exam: No Distention, No Abnormal Bruit, Tender, Hepatomegaly Extremities: Normal Inspection, Normal Range of Motion, Non-Tender, Normal Capillary Refill, No Pedal Edema Neurological: Alert, Oriented, CN II-XII Intact, Normal Cognition, Normal Gait, Normal Reflexes, No Motor/Sensory Deficits Psychiatric: Normal Affect, Anxious Skin Exam: Warm, Dry, Intact, Normal Color, No Rash Lymphatic: No Adenopathy Course - Vital Signs Last Recorded V/S: Last Vital Signs Temp 36.3 C 08/21/18 21:38 Pulse 99 08/21/18 21:38 Resp 16 08/21/18 21:38 BP 163/113 H 08/21/18 21:38 Pulse Ox 98 08/21/18 21:38 - Orders/Labs/Meds Orders: Active Orders 24 hr Category Date Time Status Abdomen Pelvis w Cont [CT] Stat Exams 08/21/18 21:45 Taken CULTURE BLOOD [BC] Stat Lab 08/21/18 23:01 Received CULTURE BLOOD [BC] Stat Lab 08/21/18 23:08 Received DRUG SCREEN, URINE [URCHEM] Stat Lab 08/21/18 22:45 Ordered UA W/MICROSCOPIC [URIN] Stat Lab 08/21/18 22:45 Ordered Sodium Chloride 0.9% [Saline Flush] Med 08/21/18 21:45 Active 10 ml FLUSH ASDIRECTED PRN Blood Culture x2 Reflex Set [OM.PC] Stat Oth 08/21/18 22:50 Ordered Saline Lock Insert [OM.PC] Routine Oth 08/21/18 21:45 Ordered Medication Orders Sodium Chloride (Saline Flush) 10 ml FLUSH ASDIRECTED PRN PRN Reason: Keep Vein Open Labs: Laboratory Tests 08/21/18 08/21/18 08/21/18 Range/Units 21:44 21:44 21:44 WBC 20.1 H* (4.0-10.0) x10^3/uL RBC 4.06 L (4.5-6.0) x10^6/uL Hgb 15.9 D (14.0-18.0) g/dL Hct 43.8 (40.0-52.0) % MCV 107.9 H D (78.0-93.0) fL MCH 39.2 H (26.0-32.0) pg MCHC 36.3 H (32.0-36.0) g/dL RDW Coeff of Charlie 13.5 (10.0-15.0) % Plt Count 426 H D (130-400) x10^3/uL Add Manual Diff Yes Neutrophils % (Manual) 83 H (50-80) % Band Neutrophils % 5 (0-6) % Lymphocytes % (Manual) 2 L (25-50) % Reactive Lymphs % 3 H (0) % Monocytes % (Manual) 6 (2-11) % Eosinophils % (Manual) 1 (0-4) % Vacuolated Monocytes Rare Platelet Estimate Increased H Polychromasia Rare Macrocytosis 2+ moderate H Sodium 142 (136-145) mmol/L Potassium 3.8 (3.5-5.1) mmol/L Chloride 103 (98-107) mmol/L Carbon Dioxide 25 (21-32) mmol/L Anion Gap 17.8 (10-20) mmol/L BUN 10 (7-18) mg/dL Creatinine 0.9 (0.70-1.30) mg/dL Est Cr Clr Drug Dosing 89.25 mL/min Estimated GFR (MDRD) > 60 Glucose 128 H (74-106) mg/dL Lactic Acid 2.3 H* (0.4-2.0) mmol/L Calcium 9.4 (8.5-10.1) mg/dL Corrected Calcium 9.56 (8.5-10.1) mg/dL Magnesium (1.8-2.4) mg/dL Total Bilirubin 0.3 (0.2-1.0) mg/dL AST 26 (15-37) U/L ALT 16 (16-63) U/L Alkaline Phosphatase 87 (46-116) U/L C-Reactive Protein 1.7 H (<=0.9) mg/dL Total Protein 7.7 (6.4-8.2) g/dL Albumin 3.8 (3.4-5.0) g/dL Globulin 3.9 Albumin/Globulin Ratio 0.97 Triglycerides 183 H (0-149) mg/dL Cholesterol 227 H (0-199) mg/dL LDL Cholesterol, Calc 127 (0-130) mg/dL HDL Cholesterol 63 H (40-59) mg/dL Amylase 822 H (25-115) U/L Lipase 6853 H (73-393) U/L 08/21/18 Range/Units 21:44 WBC (4.0-10.0) x10^3/uL RBC (4.5-6.0) x10^6/uL Hgb (14.0-18.0) g/dL Hct (40.0-52.0) % MCV (78.0-93.0) fL MCH (26.0-32.0) pg MCHC (32.0-36.0) g/dL RDW Coeff of Charlie (10.0-15.0) % Plt Count (130-400) x10^3/uL Add Manual Diff Neutrophils % (Manual) (50-80) % Band Neutrophils % (0-6) % Lymphocytes % (Manual) (25-50) % Reactive Lymphs % (0) % Monocytes % (Manual) (2-11) % Eosinophils % (Manual) (0-4) % Vacuolated Monocytes Platelet Estimate Polychromasia Macrocytosis Sodium (136-145) mmol/L Potassium (3.5-5.1) mmol/L Chloride (98-107) mmol/L Carbon Dioxide (21-32) mmol/L Anion Gap (10-20) mmol/L BUN (7-18) mg/dL Creatinine (0.70-1.30) mg/dL Est Cr Clr Drug Dosing mL/min Estimated GFR (MDRD) Glucose (74-106) mg/dL Lactic Acid (0.4-2.0) mmol/L Calcium (8.5-10.1) mg/dL Corrected Calcium (8.5-10.1) mg/dL Magnesium 1.5 L (1.8-2.4) mg/dL Total Bilirubin (0.2-1.0) mg/dL AST (15-37) U/L ALT (16-63) U/L Alkaline Phosphatase (46-116) U/L C-Reactive Protein (<=0.9) mg/dL Total Protein (6.4-8.2) g/dL Albumin (3.4-5.0) g/dL Globulin Albumin/Globulin Ratio Triglycerides (0-149) mg/dL Cholesterol (0-199) mg/dL LDL Cholesterol, Calc (0-130) mg/dL HDL Cholesterol (40-59) mg/dL Amylase (25-115) U/L Lipase (73-393) U/L Meds: Medications Generic Name Dose Route Start Last Admin Trade Name Freq PRN Reason Stop Dose Admin Sodium Chloride 10 ml 08/21/18 21:45 Saline Flush FLUSH ASDIRECTED PRN Keep Vein Open Discontinued Medications Generic Name Dose Route Start Last Admin Trade Name Freq PRN Reason Stop Dose Admin Hydromorphone HCl 1 mg 08/21/18 21:45 08/21/18 21:55 Dilaudid IVPUSH 08/21/18 21:46 1 mg ONETIME ONE Administration Hydromorphone HCl 1 mg 08/21/18 22:29 08/21/18 22:34 Dilaudid IVPUSH 08/21/18 22:30 1 mg ONETIME ONE Administration Sodium Chloride 1,000 mls @ 999 mls/hr 08/21/18 21:45 08/21/18 21:45 Normal Saline IV 08/21/18 22:45 999 mls/hr ONETIME ONE Administration Piperacillin Sod/Tazobactam 100 mls @ 200 mls/hr 08/21/18 22:50 08/21/18 23: 24 Sod 3.375 gm/ Sodium Chloride IV 08/21/18 23:19 200 mls/hr STAT ONE Administration Iopamidol 100 ml 08/21/18 23:21 08/21/18 23:21 Isovue-300 (61%) IVPUSH 08/21/18 23:22 100 ml ONETIME ONE Administration Ondansetron HCl 4 mg 08/21/18 21:45 08/21/18 21:53 Zofran IVPUSH 08/21/18 21:46 4 mg ONETIME ONE Administration Departure - Departure Time of Disposition: 00:25 Disposition: Admitted As Inpatient 64 Clinical Impression: Pancreatitis - Discharge Information Forms: ED Department Discharge ED Communication - Discussed Case With (1) Discussed Case With (1): Admitting Provider (Dr. Rashaun Bear contacted. Report given. Patient to be admitted acute with Dr. Bear as admitting and attending provider.) - Problem List & Annotations (1) Pancreatitis SNOMED Code(s): 15362190 Code(s): K85.90 - ACUTE PANCREATITIS WITHOUT NECROSIS OR INFECTION, UNSP Status: Acute Current Visit: No Qualifiers: Chronicity: acute Pancreatitis type: alcohol induced Acute pancreatitis complication: unspecified Qualified Code(s): K85.20 - Alcohol induced acute pancreatitis without necrosis or infection - Problem List Review Problem List Initiated/Reviewed/Updated: Yes - My Orders Last 24 Hours: My Active Orders 08/21/18 21:45 Abdomen Pelvis w Cont [CT] Stat Sodium Chloride 0.9% [Saline Flush] 10 ml FLUSH ASDIRECTED PRN Saline Lock Insert [OM.PC] Routine 08/21/18 22:45 DRUG SCREEN, URINE [URCHEM] Stat UA W/MICROSCOPIC [URIN] Stat 08/21/18 22:50 Blood Culture x2 Reflex Set [OM.PC] Stat 08/21/18 23:01 CULTURE BLOOD [BC] Stat 08/21/18 23:08 CULTURE BLOOD [BC] Stat - Assessment/Plan Last 24 Hours: My Active Orders 08/21/18 21:45 Abdomen Pelvis w Cont [CT] Stat Sodium Chloride 0.9% [Saline Flush] 10 ml FLUSH ASDIRECTED PRN Saline Lock Insert [OM.PC] Routine 08/21/18 22:45 DRUG SCREEN, URINE [URCHEM] Stat UA W/MICROSCOPIC [URIN] Stat 08/21/18 22:50 Blood Culture x2 Reflex Set [OM.PC] Stat 08/21/18 23:01 CULTURE BLOOD [BC] Stat 08/21/18 23:08 CULTURE BLOOD [BC] Stat Plan: Admit with acute and worsening pancreatitis according to radiology interpretation of CT. Lane criteria is 1. Dr. Bear to be admitting and attending provider. Patient requests code status as DNR/DNI. Will continue to hydrate, replete magnesium, administer IV pain medications
[2018-08-21 22:41] LABS: CHLORIDE,CL 103 mmol/L (98-107); SODIUM,NA 142 mmol/L (136-145)
[2018-08-21 22:42] LABS: ANION GAP 17.8 mmol/L (10-20)
[2018-08-21] MEDS ORDERED: Piperacillin/Tazobactam 3.375 GM in Sodium Chloride 0.9% 100 ML IV ONE (22:50)
[2018-08-21] MEDS ORDERED: Iopamidol 612 MG/ML 100 ML Bottle IVPUSH ONE (23:21)
[2018-08-21] MEDS: Dextrose 5%-0.45% NaCl 1,000 ML IV SCH (23:25)
[2018-08-21] MEDS ORDERED: Magnesium Sulfate/Water 2 GM in Premix Bag 1 BAG IV ONE (23:40)
[2018-08-22] MEDS ORDERED: Ketorolac 15 MG/ML SDV IVPUSH ONE (00:06)
[2018-08-22] MEDS ORDERED: Ondansetron 4 MG/2 ML SDV IV PRN (00:27)
[2018-08-22] MEDS ORDERED: Pantoprazole 40 MG Vial IVPUSH ONE (00:30)
[2018-08-22] MEDS ORDERED: Metoprolol Tartrate 5 MG/5 ML SDV IVPUSH ONE (00:32)
[2018-08-22] MEDS: Sodium Chloride 0.9% 10 ML Syringe FLUSH PRN ×6 (00:56→22:26)
[2018-08-22] MEDS: Morphine 2 MG/ML Syringe IVPUSH PRN ×7 (01:25→22:26)
--- NOTE | 2018-08-22 08:41 | CT ---
[id number] CT/CT Abdomen Pelvis W IV EXAM: CT Abdomen Pelvis W IV CLINICAL DATA: HISTORY OF PANCREATITIS. COMPARISON STUDY: Multiple priors, most recent from August 04, 2018. FINDINGS: Increased edema centered about the pancreas in the upper abdomen. Findings are consistent with worsening acute pancreatitis since prior examination on August 04, 2017. At this point, there is no evidence of pancreas necrosis, pseudocyst, or other complication. There is reactive change in the second and third portions of the duodenum not seen previously. Cholelithiasis, including a small stone in the neck of the gallbladder. However, no evidence of acute cholecystitis. No other significant change from the prior examination. IMPRESSION: Worsening changes of acute pancreatitis since August 04, 2018. No complicating features identified at this time. Waylon Fields MD 08/22/18 0840 Thank you for allowing us to participate in the care of your patient.
[2018-08-22 10:07] LABS: CHLORIDE,CL 105 mmol/L (98-107); SODIUM,NA 142 mmol/L (136-145)
[2018-08-22 10:09] LABS: ANION GAP 13.7 mmol/L (10-20)
--- NOTE | 2018-08-22 13:44 | PCM.HP ---
H&P History of Present Illness - General Date of Service: 08/22/18 Admit Problem/Dx: Admission Diagnosis/Problem Admission Diagnosis/Problem Pancreatitis - History of Present Illness Initial Comments - Free Text/Narative: Patient is in for abdominal pain. Came into ER late last night. Feels similar to recent pancreatitis which she's had a couple times in the past. Seems to be alcohol related but he denies recent alcohol use. Has a heavy alcohol use history, see below. He denies fever denies cough denies dysuria. He had been hospitalized at [facility] from August 02, 2018, until August 06, 2018, with acute pancreatitis, which is a related to alcohol use. He was found to have macrocytosis. He had lipase that was elevated up to 3400. He was also found to be low in potassium at 1.5 and his potassium had been low at 3.0. He was treated with GI rest, IV fluids, and IV Dilaudid and transitioned over to oral hydrocodone. At discharge, he had been increased from his 1/2 pill twice a day to 1 pill twice a day, which he has been taking since discharge. He was to have been on magnesium at discharge, but this was not picked up at the pharmacy, as he did not realize it was over the counter. He also did not continue on Prilosec as he "had no dyspepsia." He had been treated with thiamine while he was hospitalized and he was potassium 20 mEq daily. Since going home, he has been having a very bland, almost watery diet, which he does not care for. He did resume smoking since going home, but he has not had any alcohol to drink. When asked about his mood and if he is feeling down or depressed, he states that maybe a little. We have not done a PHQ on him ever. The patient does not feel the need to go into counseling for getting off alcohol. He is able to "do on his own." He had no further anxiety since being discharged home from the hospital, as he may have had a little bit that was related to alcohol withdrawal. Past medical history: Tobacco abuse, seizure disorder, hypercholesterolemia, alcoholic pancreatitis, chronic pain with chronic pain contract, macular degeneration, macrocytosis, eczema, hyponatremia, hypomagnesemia, hypertension, alcohol abuse. Medications: Magnesium oxide, hydrocodone, Keppra, Toprol, lisinopril, steroid cream, aspirin, B-12. Allergies: No known drug allergies Social history smoker Family history: COPD, pancreatic cancer Review of systems: No fever no cough no dyspnea no chest pain no diarrhea and no dysuria no rash no suicidal ideation Vital signs: Temperature 37.9 blood pressure 161/95 oxygen saturation 98% room air pulse 78 Alert oriented male no acute distress sitting comfortably up in bed, heart and lungs clear to auscultation. Moderate tenderness upper abdomen, lower quadrants nontender and soft. Extremity is warm well perfused without edema. Laboratory white count 17,011 15.9 and MCV 111 CRP 8.8 amylase 600 lipase 6000 CRP 8.8 he has positive oxycodone THC CT abdomen pelvis shows some worsening of the pancreatitis findings from three weeks ago but otherwise appears uncomplicated. Does have apparent cholelithiasis without khoi choledocholithiasis or cholecystitis. Assessment and plan. Recurrence of acute pancreatitis. Appears to primarily be from surreptitious alcohol use based on past medical history. Denies recent alcohol use otherwise. He does have gallstones by CT which were not apparent by ultrasound at 2012. These could be contributing as well. Rarely marijuana and other medicines have been associated with pancreatitis. Would appear nonsevere by CT/BISAP score, CRP <15mg/dL also portends less severity IVF and pain control. Monitor lytes. Early PO intake withhin 48hr associated with better outcomes, slowly ADAT to clears in AM. Not improving in timely manner may need ultrasound and surgical evaluation of his gallbladder. Probably needs this follow-up outpatient either way. Consult social work for chemical dependency. Pradua score is zero. Pharmacologic prophylaxis is NOT indicated. Consider using mechanical prophylaxis. upper abdomen Pain Score (Numeric/FACES): 7 - Related Data Allergies/Adverse Reactions: Allergies Allergy/AdvReac Type Severity Reaction Status Date / Time No Known Allergies Allergy Verified 08/21/18 22:02 Home Medications: Home Meds Aspirin [Aspirin EC] 325 mg DAILY 08/02/18 [History] Halobetasol Propionate [Ultravate] 1 applic BID 08/02/18 [History] Hydrocodone/Acetaminophen [Hydrocodon-Acetaminophen 5-325] 0.5 tab PO BID [History] Lisinopril 20 mg DAILY 08/02/18 [History] Metoprolol Succinate [Toprol XL] 200 mg DAILY 08/02/18 [History] Triamcinolone Acetonide [Triamcinolone Acetonide 0.1% Crm] 1 applic BID [History] levETIRAcetam [Keppra] 500 mg BID 08/02/18 [History] Past Medical History HEENT History: Reports: Cataract, Glaucoma, Macular Degeneration Cardiovascular History: Reports: High Cholesterol, Hypertension Gastrointestinal History: Reports: Pancreatitis Neurological History: Reports: Seizure Psychiatric History: Reports: Other (See Below) Other Psychiatric History: Chronic alcohol abuse, tobacco use, and chronic use of opioids Hematologic History: Reports: Other (See Below) Other Hematologic History: high liver enzymes. macrocytosis Dermatologic History: Reports: Eczema - Infectious Disease History Infectious Disease History: Reports: Chicken Pox, Measles - Past Surgical History Musculoskeletal Surgical History: Reports: Other (See Below) Other Musculoskeletal Surgeries/Procedures:: closed fx of distal phalanx of phalanges of hand Social & Family History - Family History Family Medical History: Noncontributory - Tobacco Use Smoking Status *Q: Current Every Day Smoker Years of Tobacco use: 31 Packs/Tins Daily: 0.5 Used Tobacco, but Quit: No Second Hand Smoke Exposure: No - Caffeine Use Caffeine Use: Reports: Soda, Tea - Alcohol Use Date of Last Drink: 07/27/18 - Recreational Drug Use Recreational Drug Use: No H&P Review of Systems - Review of Systems: Review Of Systems: See Below Exam - Exam Exam: See Below - Vital Signs Vital Signs: Last Vital Signs Temp 37.9 C 08/22/18 09:21 Pulse 78 08/22/18 09:21 Resp 16 08/22/18 09:21 BP 161/95 H 08/22/18 09:21 Pulse Ox 98 08/22/18 09:21 Weight: 68.674 kg - Patient Data Lab Results Last 24 hrs: Laboratory Results - last 24 hr 08/21/18 08/21/18 08/21/18 Range/Units 21:44 21:44 21:44 WBC 20.1 H* (4.0-10.0) x10^3/uL RBC 4.06 L (4.5-6.0) x10^6/uL Hgb 15.9 D (14.0-18.0) g/dL Hct 43.8 (40.0-52.0) % MCV 107.9 H D (78.0-93.0) fL MCH 39.2 H (26.0-32.0) pg MCHC 36.3 H (32.0-36.0) g/dL RDW Coeff of Charlie 13.5 (10.0-15.0) % Plt Count 426 H D (130-400) x10^3/uL Neut % (Auto) (50.0-80.0) % Lymph % (Auto) (25.0-50.0) % [place] % (Auto) (2.0-11.0) % Eos % (Auto) (0.0-4.0) % Baso % (Auto) (0.2-1.2) % Add Manual Diff Yes Neutrophils % (Manual) 83 H (50-80) % Band Neutrophils % 5 (0-6) % Lymphocytes % (Manual) 2 L (25-50) % Reactive Lymphs % 3 H (0) % Monocytes % (Manual) 6 (2-11) % Eosinophils % (Manual) 1 (0-4) % Vacuolated Monocytes Rare Platelet Estimate Increased H Polychromasia Rare Macrocytosis 2+ moderate H Sodium 142 (136-145) mmol/L Potassium 3.8 (3.5-5.1) mmol/L Chloride 103 (98-107) mmol/L Carbon Dioxide 25 (21-32) mmol/L Anion Gap 17.8 (10-20) mmol/L BUN 10 (7-18) mg/dL Creatinine 0.9 (0.70-1.30) mg/dL Est Cr Clr Drug Dosing 89.25 mL/min Estimated GFR (MDRD) > 60 Glucose 128 H (74-106) mg/dL Lactic Acid 2.3 H* (0.4-2.0) mmol/L Calcium 9.4 (8.5-10.1) mg/dL Corrected Calcium 9.56 (8.5-10.1) mg/dL Phosphorus (2.6-4.7) mg/dL Magnesium (1.8-2.4) mg/dL Total Bilirubin 0.3 (0.2-1.0) mg/dL AST 26 (15-37) U/L ALT 16 (16-63) U/L Alkaline Phosphatase 87 (46-116) U/L Lactate Dehydrogenase (85-227) U/L C-Reactive Protein 1.7 H (<=0.9) mg/dL Total Protein 7.7 (6.4-8.2) g/dL Albumin 3.8 (3.4-5.0) g/dL Globulin 3.9 Albumin/Globulin Ratio 0.97 Triglycerides 183 H (0-149) mg/dL Cholesterol 227 H (0-199) mg/dL LDL Cholesterol, Calc 127 (0-130) mg/dL HDL Cholesterol 63 H (40-59) mg/dL Amylase 822 H (25-115) U/L Lipase 6853 H (73-393) U/L Urine Color (YELLOW) Urine Appearance (CLEAR) Urine pH (5.0-8.0) Ur Specific [place] Urine Protein (NEGATIVE) mg/dL Urine Glucose (UA) (NEGATIVE) mg/dL Urine Ketones (NEGATIVE) mg/dL Urine Occult Blood (NEGATIVE) Urine Nitrite (NEGATIVE) Urine Bilirubin (NEGATIVE) Urine Urobilinogen (0.2) EU/dL Ur Leukocyte Esterase (NEGATIVE) Urine RBC (NOT SEEN) /HPF Urine WBC (NOT SEEN) /HPF Ur Squamous Epith Cells (NEGATIVE) /HPF Urine Bacteria (NEGATIVE) /HPF Urine Mucus (NEGATIVE) /LPF Urine Opiates Screen (NEAGTIVE) Ur Buprenorphine Scrn (NEGATIVE) Ur Oxycodone Screen (NEGATIVE) Urine Methadone Screen (NEGATIVE) Ur Barbiturates Screen (NEGATIVE) Ur Tricyclics Screen (NEGATIVE) Ur Amphetamine Screen (NEGATIVE) U Methamphetamines Scrn (NEGATIVE) Urine MDMA Screen (NEGATIVE) U Benzodiazepines Scrn (NEGATIVE) U Cocaine Metab Screen (NEGATIVE) U Marijuana (THC) Screen (NEGATIVE) 08/21/18 08/22/18 08/22/18 Range/Units 21:44 05:57 05:57 WBC (4.0-10.0) x10^3/uL RBC (4.5-6.0) x10^6/uL Hgb (14.0-18.0) g/dL Hct (40.0-52.0) % MCV (78.0-93.0) fL MCH (26.0-32.0) pg MCHC (32.0-36.0) g/dL RDW Coeff of Charlie (10.0-15.0) % Plt Count (130-400) x10^3/uL Neut % (Auto) (50.0-80.0) % Lymph % (Auto) (25.0-50.0) % [place] % (Auto) (2.0-11.0) % Eos % (Auto) (0.0-4.0) % Baso % (Auto) (0.2-1.2) % Add Manual Diff Neutrophils % (Manual) (50-80) % Band Neutrophils % (0-6) % Lymphocytes % (Manual) (25-50) % Reactive Lymphs % (0) % Monocytes % (Manual) (2-11) % Eosinophils % (Manual) (0-4) % Vacuolated Monocytes Platelet Estimate Polychromasia Macrocytosis Sodium (136-145) mmol/L Potassium (3.5-5.1) mmol/L Chloride (98-107) mmol/L Carbon Dioxide (21-32) mmol/L Anion Gap (10-20) mmol/L BUN (7-18) mg/dL Creatinine (0.70-1.30) mg/dL Est Cr Clr Drug Dosing mL/min Estimated GFR (MDRD) Glucose (74-106) mg/dL Lactic Acid (0.4-2.0) mmol/L Calcium (8.5-10.1) mg/dL Corrected Calcium (8.5-10.1) mg/dL Phosphorus (2.6-4.7) mg/dL Magnesium 1.5 L (1.8-2.4) mg/dL Total Bilirubin (0.2-1.0) mg/dL AST (15-37) U/L ALT (16-63) U/L Alkaline Phosphatase (46-116) U/L Lactate Dehydrogenase (85-227) U/L C-Reactive Protein (<=0.9) mg/dL Total Protein (6.4-8.2) g/dL Albumin (3.4-5.0) g/dL Globulin Albumin/Globulin Ratio Triglycerides (0-149) mg/dL Cholesterol (0-199) mg/dL LDL Cholesterol, Calc (0-130) mg/dL HDL Cholesterol (40-59) mg/dL Amylase (25-115) U/L Lipase (73-393) U/L Urine Color Yellow (YELLOW) Urine Appearance Clear (CLEAR) Urine pH 5.0 (5.0-8.0) Ur Specific [place] 1.015 Urine Protein Negative (NEGATIVE) mg/dL Urine Glucose (UA) Negative (NEGATIVE) mg/dL Urine Ketones Negative (NEGATIVE) mg/dL Urine Occult Blood Negative (NEGATIVE) Urine Nitrite Negative (NEGATIVE) Urine Bilirubin Negative (NEGATIVE) Urine Urobilinogen 0.2 (0.2) EU/dL Ur Leukocyte Esterase Negative (NEGATIVE) Urine RBC 0-5 (NOT SEEN) /HPF Urine WBC Not seen (NOT SEEN) /HPF Ur Squamous Epith Cells Rare (NEGATIVE) /HPF Urine Bacteria Not seen (NEGATIVE) /HPF Urine Mucus Not seen (NEGATIVE) /LPF Urine Opiates Screen Positive H (NEAGTIVE) Ur Buprenorphine Scrn Negative (NEGATIVE) Ur Oxycodone Screen Positive H (NEGATIVE) Urine Methadone Screen Negative (NEGATIVE) Ur Barbiturates Screen Negative (NEGATIVE) Ur Tricyclics Screen Negative (NEGATIVE) Ur Amphetamine Screen Negative (NEGATIVE) U Methamphetamines Scrn Negative (NEGATIVE) Urine MDMA Screen Negative (NEGATIVE) U Benzodiazepines Scrn Negative (NEGATIVE) U Cocaine Metab Screen Negative (NEGATIVE) U Marijuana (THC) Screen Positive H (NEGATIVE) 08/22/18 08/22/18 Range/Units 09:10 09:10 WBC 17.0 H (4.0-10.0) x10^3/uL RBC 3.59 L (4.5-6.0) x10^6/uL Hgb 13.8 L D (14.0-18.0) g/dL Hct 40.0 (40.0-52.0) % MCV 111.4 H D (78.0-93.0) fL MCH 38.4 H (26.0-32.0) pg MCHC 34.5 (32.0-36.0) g/dL RDW Coeff of Charlie 13.5 (10.0-15.0) % Plt Count 373 (130-400) x10^3/uL Neut % (Auto) 76.4 (50.0-80.0) % Lymph % (Auto) 11.2 L (25.0-50.0) % [place] % (Auto) 11.4 H (2.0-11.0) % Eos % (Auto) 0.9 (0.0-4.0) % Baso % (Auto) 0.1 L (0.2-1.2) % Add Manual Diff Neutrophils % (Manual) (50-80) % Band Neutrophils % (0-6) % Lymphocytes % (Manual) (25-50) % Reactive Lymphs % (0) % Monocytes % (Manual) (2-11) % Eosinophils % (Manual) (0-4) % Vacuolated Monocytes Platelet Estimate Polychromasia Macrocytosis Sodium 142 (136-145) mmol/L Potassium 3.7 (3.5-5.1) mmol/L Chloride 105 (98-107) mmol/L Carbon Dioxide 27 (21-32) mmol/L Anion Gap 13.7 (10-20) mmol/L BUN 10 (7-18) mg/dL Creatinine 0.9 (0.70-1.30) mg/dL Est Cr Clr Drug Dosing 90.08 mL/min Estimated GFR (MDRD) > 60 Glucose 107 H (74-106) mg/dL Lactic Acid (0.4-2.0) mmol/L Calcium 8.8 (8.5-10.1) mg/dL Corrected Calcium 9.44 (8.5-10.1) mg/dL Phosphorus 3.7 (2.6-4.7) mg/dL Magnesium 2.1 (1.8-2.4) mg/dL Total Bilirubin 0.3 (0.2-1.0) mg/dL AST 21 (15-37) U/L ALT 11 L (16-63) U/L Alkaline Phosphatase 72 (46-116) U/L Lactate Dehydrogenase 118 (85-227) U/L C-Reactive Protein 8.8 H (<=0.9) mg/dL Total Protein 6.6 (6.4-8.2) g/dL Albumin 3.2 L (3.4-5.0) g/dL Globulin 3.4 Albumin/Globulin Ratio 0.94 Triglycerides (0-149) mg/dL Cholesterol (0-199) mg/dL LDL Cholesterol, Calc (0-130) mg/dL HDL Cholesterol (40-59) mg/dL Amylase 600 H (25-115) U/L Lipase (73-393) U/L Urine Color (YELLOW) Urine Appearance (CLEAR) Urine pH (5.0-8.0) Ur Specific [place] Urine Protein (NEGATIVE) mg/dL Urine Glucose (UA) (NEGATIVE) mg/dL Urine Ketones (NEGATIVE) mg/dL Urine Occult Blood (NEGATIVE) Urine Nitrite (NEGATIVE) Urine Bilirubin (NEGATIVE) Urine Urobilinogen (0.2) EU/dL Ur Leukocyte Esterase (NEGATIVE) Urine RBC (NOT SEEN) /HPF Urine WBC (NOT SEEN) /HPF Ur Squamous Epith Cells (NEGATIVE) /HPF Urine Bacteria (NEGATIVE) /HPF Urine Mucus (NEGATIVE) /LPF Urine Opiates Screen (NEAGTIVE) Ur Buprenorphine Scrn (NEGATIVE) Ur Oxycodone Screen (NEGATIVE) Urine Methadone Screen (NEGATIVE) Ur Barbiturates Screen (NEGATIVE) Ur Tricyclics Screen (NEGATIVE) Ur Amphetamine Screen (NEGATIVE) U Methamphetamines Scrn (NEGATIVE) Urine MDMA Screen (NEGATIVE) U Benzodiazepines Scrn (NEGATIVE) U Cocaine Metab Screen (NEGATIVE) U Marijuana (THC) Screen (NEGATIVE) Result Diagrams: 08/22/18 09:10 08/22/18 09:10 Problem List Initiated/Reviewed/Updated: Yes Orders Last 24hrs: Active Orders 24 hr Category Date Time Status Patient Status [ADT] Routine ADT 08/22/18 00:05 Active Patient Status [ADT] Routine ADT 08/22/18 00:27 Active Ambulate [RC] ASDIRECTED Care 08/22/18 00:27 Active Oxygen Therapy [RC] PRN Care 08/22/18 00:27 Active Up ad Dee [RC] ASDIRECTED Care 08/22/18 00:27 Active VTE/DVT Education [RC] .PRN Care 08/22/18 00:27 Active Vital Signs [RC] 06,10,14,18,22,02 Care 08/22/18 00:27 Active Consult to Case Management/Tentering Machine Feeder [CONS] Cons 08/22/18 12:40 Active Routine CULTURE BLOOD [BC] Stat Lab 08/21/18 23:01 Received CULTURE BLOOD [BC] Stat Lab 08/21/18 23:08 Received GGT [REF] Routine Lab 08/22/18 09:10 Received Acetaminophen/HYDROcodone [Chetopa 325-5 MG] Med 08/22/18 20:00 Active 0.5 tab PO BID Aspirin [Ecotrin] Med 08/23/18 08:00 Active 325 mg PO DAILY Dextrose 5%-0.45% NaCl [Dextrose 5%-1/2 NS] 1,000 ml Med 08/22/18 00:15 Active IV ASDIRECTED Halobetasol Propionate [Ultravate] Med 08/22/18 20:00 Pending 1 applic TOP BID Lisinopril [Prinivil] Med 08/23/18 08:00 Active 20 mg PO DAILY Metoprolol Succinate [Toprol XL] Med 08/23/18 08:00 Active 200 mg PO DAILY Morphine Med 08/22/18 00:27 Active 2 mg IVPUSH Q2H PRN Ondansetron [Zofran] Med 08/22/18 00:27 Active 4 mg IV Q6H PRN Sodium Chloride 0.9% [Saline Flush] Med 08/21/18 21:45 Active 10 ml FLUSH ASDIRECTED PRN Triamcinolone Acetonide [Triamcinolone Acetonide 0.1% Med 08/22/18 20:00 Active Crm] 0 gm TOP BID levETIRAcetam [Keppra] Med 08/22/18 20:00 Active 500 mg PO BID Blood Culture x2 Reflex Set [OM.PC] Stat Oth 08/21/18 22:50 Ordered Saline Lock Insert [OM.PC] Routine Oth 08/21/18 21:45 Ordered Resuscitation Status Routine Resus Stat 08/22/18 00:27 Ordered Medication Orders Hydrocodone Bitart/Acetaminophen (Chetopa 325-5 Mg) 0.5 tab PO BID [facility] Aspirin (Ecotrin) 325 mg PO DAILY BLANE Dextrose/Sodium Chloride (Dextrose 5%-1/2 Ns) 1,000 mls @ 75 mls/hr IV ASDIRECTED BLANE Last Admin: 08/21/18 23:25 Dose: 75 mls/hr Levetiracetam (Keppra) 500 mg PO BID [facility] Lisinopril (Prinivil) 20 mg PO DAILY [facility] Metoprolol Succinate (Toprol Xl) 200 mg PO DAILY [facility] Morphine Sulfate (Morphine) 2 mg IVPUSH Q2H PRN PRN Reason: Pain (severe 7-10) Last Admin: 08/22/18 12:44 Dose: 2 mg Admin: 08/22/18 10:11 Dose: 2 mg Admin: 08/22/18 07:05 Dose: 2 mg Admin: 08/22/18 04:07 Dose: 2 mg Admin: 08/22/18 01:25 Dose: 2 mg Non-Formulary Medication (Halobetasol Propionate [Ultravate]) 1 applic TOP BID BLANE Ondansetron HCl (Zofran) 4 mg IV Q6H PRN PRN Reason: Nausea/Vomiting Sodium Chloride (Saline Flush) 10 ml FLUSH ASDIRECTED PRN PRN Reason: Keep Vein Open Last Admin: 08/22/18 07:06 Dose: 10 ml Admin: 08/22/18 04:08 Dose: 10 ml Admin: 08/22/18 01:25 Dose: 10 ml Admin: 08/22/18 00:57 Dose: 10 ml Admin: 08/22/18 00:56 Dose: 10 ml Triamcinolone Acetonide (Triamcinolone Acetonide 0.1% Crm) 0 gm TOP BID BLANE
[2018-08-22] MEDS: Dextrose 5%-0.45% NaCl 1,000 ML IV SCH (15:28)
[2018-08-22] MEDS: Acetaminophen/HYDROcodone 325-5 MG Tab PO SCH (19:25)
[2018-08-22] MEDS: levETIRAcetam 500 MG Tab PO SCH (19:25)
[2018-08-22] MEDS: Triamcinolone Acetonide 0.1% Crm 15 GM Tube TOP SCH (19:26)
[2018-08-22] MEDS ORDERED: Non-Formulary Medication 1 Each (Halobetasol Propionate [Ultravate] 1 APPLIC) TOP SCH (20:00)
[2018-08-23] MEDS: Dextrose 5%-0.45% NaCl 1,000 ML IV SCH (04:44)
[2018-08-23] MEDS: Sodium Chloride 0.9% 10 ML Syringe FLUSH PRN (05:02)
[2018-08-23] MEDS: Morphine 2 MG/ML Syringe IVPUSH PRN (05:03)
[2018-08-23 06:51] LABS: CHLORIDE,CL 104 mmol/L (98-107); SODIUM,NA 139 mmol/L (136-145)
[2018-08-23 06:53] LABS: ANION GAP 13.4 mmol/L (10-20)
[2018-08-23] MEDS: Lisinopril 20 MG Tab PO SCH (08:23)
[2018-08-23] MEDS: Aspirin 325 MG Tab.EC PO SCH (08:23)
[2018-08-23] MEDS: levETIRAcetam 500 MG Tab PO SCH ×2 (08:23→19:31)
[2018-08-23] MEDS: Metoprolol Succinate 50 MG Tab.ER PO SCH (08:23)
[2018-08-23] MEDS: Acetaminophen/HYDROcodone 325-5 MG Tab PO SCH ×2 (08:24→19:31)
[2018-08-23] MEDS: Triamcinolone Acetonide 0.1% Crm 15 GM Tube TOP SCH ×2 (08:27→19:32)
[2018-08-23] MEDS ORDERED: HYDROmorphone 1 MG/ML Syringe IVPUSH PRN (08:30)
[2018-08-23] MEDS: Pantoprazole 40 MG Vial IVPUSH SCH ×2 (09:04→19:31)
[2018-08-23] MEDS: Dextrose 5%-0.9% NaCl with KCl 1,000 ML IV SCH ×2 (09:04→19:33)
--- NOTE | 2018-08-23 09:09 | PN ---
Progress Note for JAYNA DUDLEY Date: 08/23/2018 Room #: VM.214 SUBJECTIVE: The patient had been discharged from acute care with his recent acute pancreatitis with known gallstone present on08/02/18 to 08/06/18. He was seen in the clinic on 08/12/18 and doing quite well. His lab work had shown that his magnesium was back to normal despite not taking any magnesium at the time of discharge, it was felt that he did not require any magnesium. His potassium also came back high, so then we had stopped his oral potassium. The patient states in the mean time, he has had a little bit of a cold. He had been taking NyQuil cough syrup, which he did not realize had alcohol in it. His diet had been bland and he continued a bland diet. He did not continue on any proton pump inhibitor after discharge as he "did not feel like he had any heartburn" and he commented that the afternoon prior to getting admitted, [facility] and then had onset of abdominal discomfort. When admitted at this time, his lipase was up to 6853. His previous hospitalization, the lipase had been at 3480. The patient denies fever or chills. No anthony-colored stools. His MCV at his last hospitalization had gone from 115 up to 119 and then down to 107 at the time of readmission, now it is back up to 112. The patient has been given IV morphine for pain control, not Dilaudid this hospitalization. His IV has been D5 half-normal saline with no potassium in it. OBJECTIVE: Vital Signs: His temperature is 36.6, pulse 82, blood pressure is 181/63, which has improved greatly. Respiratory rate 18 and saturations 95. The patient rates his pain as 8/10. General: The patient is lying in bed, appears uncomfortable with any types of movement. He is diaphoretic. Heart: Regular rate and rhythm. Lungs: Clear to auscultation. Abdomen: He has no bowel sounds. It is soft, but he does have guarding in the epigastric area, but no rebound. Extremities: Lower Extremities are slender thin and he moves all extremities. Psych: His affect is pleasant, talkative. LABORATORY DATA: His lab today shows that his white blood cell count is 14.5, which is improved. Hemoglobin 11.9, which has dropped. MCV is 112 with 65 segs, 15 lymphs. His sodium is 139, potassium 3.4, creatinine 0.6, BUN 6, and glucose 97. Lactic acid is pending. His calcium is 8.2, GGT was 18, AST 19, ALT 10, CRP up to 18.8 today. Albumin 2.6. His amylase was 241, which is improved. Lipase is improved at 561. IMPRESSION: 1. Recurrent acute pancreatitis. 2. Mild hypokalemia. 3. Mild hypomagnesemia. 4 Hypertension. 5. Chronic pain ankle, on disability. 6. Tobacco use. 7. Marijuana use. PLAN: We will switch the patient IV Dilaudid instead of morphine. We will switch his IV fluids to D5 normal saline with some potassium in the a.m. We will resume proton pump inhibitor and we will confer with hospitalist in [place] if he needs possible further look at his gallbladder duct because his CT scan that was done here did show gallstones but had showed "worsening of his pancreatitis." Will place on nicotene patch also. GM08/23/2018 08:41:24 MODL: 08/23/2018 09:03:26 /[id number] MTDVal
[2018-08-23] MEDS: HYDROmorphone 1 MG/ML Syringe IVPUSH PRN ×3 (10:27→22:24)
[2018-08-24] MEDS: HYDROmorphone 1 MG/ML Syringe IVPUSH PRN ×2 (03:48→10:20)
[2018-08-24] MEDS: Dextrose 5%-0.9% NaCl with KCl 1,000 ML IV SCH (05:43)
[2018-08-24] MEDS: Pantoprazole 40 MG Vial IVPUSH SCH ×2 (07:35→20:54)
[2018-08-24] MEDS: Metoprolol Succinate 50 MG Tab.ER PO SCH (07:35)
[2018-08-24] MEDS: Aspirin 325 MG Tab.EC PO SCH (07:36)
[2018-08-24] MEDS: levETIRAcetam 500 MG Tab PO SCH ×2 (07:36→19:29)
[2018-08-24] MEDS: Acetaminophen/HYDROcodone 325-5 MG Tab PO SCH ×2 (07:36→19:28)
[2018-08-24] MEDS: Lisinopril 20 MG Tab PO SCH (07:37)
[2018-08-24] MEDS: Nicotine 21 MG/24 Hr Patch TRDERM SCH (07:37)
[2018-08-24] MEDS: Triamcinolone Acetonide 0.1% Crm 15 GM Tube TOP SCH ×2 (07:39→20:53)
[2018-08-24 08:18] LABS: CHLORIDE,CL 108 mmol/L (98-107); SODIUM,NA 144 mmol/L (136-145)
[2018-08-24 08:20] LABS: ANION GAP 12.7 mmol/L (10-20)
[2018-08-24] MEDS ORDERED: Acetaminophen/HYDROcodone 325-10 MG Tab PO PRN (12:00)
[2018-08-24] MEDS: Magnesium Oxide 400 MG Tab PO SCH ×2 (12:25→19:29)
[2018-08-24] MEDS: Sodium Chloride 0.9% 10 ML Syringe FLUSH PRN (12:25)
[2018-08-24] MEDS ORDERED: Ondansetron 4 MG/2 ML SDV IVPUSH PRN (12:41)
--- NOTE | 2018-08-24 12:44 | PN ---
Progress Note for JAYNA DUDLEY Date: 08/24/2018 Room #: VM.214 SUBJECTIVE: This is hospital day #3 on a 53-year-old admitted with pancreatitis. This is a recurrent episode, the last was around August 02. He has not been drinking any alcohol per his report. He otherwise does have some followup arranged in the GI clinic due to some history of gallstones. He states his pain got worse this morning after he had some oatmeal. It was up to about 8/10, then he got some IV Dilaudid about an hour ago, and now it is down to a 5. He otherwise has been drinking water without any problems. He has been a little bit nauseated, but has not vomited. He reports his bowels and bladder are working okay. Otherwise, he does take hydrocodone twice daily for chronic ankle pain. He has been on half pill twice a day, his home dose. He received 3 doses of IV Dilaudid yesterday and 2 this morning. He reports overall he is better than when he came in. OBJECTIVE: Vital Signs: His temperature 98.6, pulse 73, blood pressure 121/71, respiratory rate 16, O2 of 100% on room air. General: He is in no acute distress. Heart: Regular rate and rhythm. S1 and S2 without murmur. Lungs: Lung sounds are clear to auscultation bilaterally without crackles or wheezes. Abdomen: Has positive bowel sounds. It is soft. There is some mild tenderness in the mid epigastric area. No rebound. No guarding. Extremities: Warm and dry. No edema. Mental Status: He is alert. He is orientated x3. LABORATORY DATA: His lab work was reviewed. White count went down to 12, hemoglobin 11.1, platelets 276. Sodium 144, potassium 3.7, chloride 108, bicarb 27, BUN 4, creatinine 0.6, glucose 81, calcium 8.3, magnesium 1.6, AST down to 18, ALT is 8, alkaline phosphatase 59. CRP is stable at 5.8, albumin 2.4, lipase normal at 195. The patient did have positive drug screen for marijuana on admission. ASSESSMENT: 1. Recurrent pancreatitis, acute. The patient has appropriate GI followup arranged. He may need an MRCP here if he is in until Sunday. Otherwise, all arrangements can be made through [facility]. 2. Hypokalemia, replaced. We will stop IV fluids. 3. Hypomagnesemia. I will order some oral magnesium supplementation. 4. Essential hypertension. Blood pressure is controlled. 5. Chronic ankle pain. 6. Tobacco and marijuana use. 7. Protein Calorie Malnutrition PLAN: At this point, the patient will switch back to oral hydrocodone for p.r.n. pain. We will try to limit further doses of IV Dilaudid to get him off IVs and hopefully home as soon as tomorrow. He will continue IV Protonix for now, and we will repeat lab work in the morning. Otherwise, he should be up and walking in the halls. Lab work again will be repeated. MKA: 08/24/2018 12:14:56 MODL: 08/24/2018 12:35:08 /[id number] MTDD
[2018-08-24] MEDS: Acetaminophen/HYDROcodone 325-10 MG Tab PO PRN ×2 (15:44→20:52)
[2018-08-25] MEDS: Acetaminophen/HYDROcodone 325-10 MG Tab PO PRN ×3 (01:23→12:29)
[2018-08-25 07:59] LABS: CHLORIDE,CL 103 mmol/L (98-107); SODIUM,NA 136 mmol/L (136-145)
[2018-08-25] MEDS: Nicotine 21 MG/24 Hr Patch TRDERM SCH (08:02)
[2018-08-25] MEDS: Metoprolol Succinate 50 MG Tab.ER PO SCH (08:02)
[2018-08-25 08:03] LABS: ANION GAP 11.5 mmol/L (10-20)
[2018-08-25] MEDS: Magnesium Oxide 400 MG Tab PO SCH (08:03)
[2018-08-25] MEDS: Acetaminophen/HYDROcodone 325-5 MG Tab PO SCH (08:03)
[2018-08-25] MEDS: levETIRAcetam 500 MG Tab PO SCH (08:03)
[2018-08-25] MEDS: Aspirin 325 MG Tab.EC PO SCH (08:04)
[2018-08-25] MEDS: Pantoprazole 40 MG Vial IVPUSH SCH (08:04)
[2018-08-25] MEDS: Triamcinolone Acetonide 0.1% Crm 15 GM Tube TOP SCH (08:04)
[2018-08-25] MEDS: Lisinopril 20 MG Tab PO SCH (08:05)
--- NOTE | 2018-08-25 13:01 | DISCH ---
PRIMARY DISCHARGE DIAGNOSES: 1. Pancreatitis which is recurrent and possibly due to gallstones. Outpatient followup has been arranged. 2. Hypokalemia, replaced. No supplements ordered on discharge. 3. Hypomagnesemia on replacement 400 daily, ordered on discharge. 4. Essential hypertension. Blood pressure is mildly elevated, 144/72 on discharge. He is on his lisinopril. No changes were made. 5. Protein-calorie malnutrition due to pancreatitis. He is eating well on discharge. 6. Chronic ankle pain, on hydrocodone. Recent increase to a full tablet twice daily. He has a couple of pills left at home and will get his regular refills through the pharmacy tomorrow. 7. Tobacco and marijuana use. 8. Previous alcohol use. He denies any recent use. REASON FOR ADMISSION: On the date of admission, this 53-year-old male who had a previous admission around 08/02/2018 for pancreatitis, returned to the ER with the same symptoms of abdominal pain. He was admitted. He had elevated lipase. He was placed n.p.o. and placed on IV fluids and his condition gradually improved. He was able to be taken off IV Dilaudid and was tolerating just oral pain management with hydrocodone which he has available at home. He received an extra dose of [place] this morning, but again only had the 0.5 mg scheduled and was on 1 mg twice at home. He also received a dose at 1 a.m. and 12:30 and he received 2 doses last evening. He was breathing well. He was having only 2 to 3/10 abdominal pain and overall deemed stable for discharge. He did have IV Protonix given his hemoglobins were stable and were 12.1 on discharge. His white count trended down. He had no infections during his stay and did not require any antibiotics. Potassium was 3.5, magnesium was 1.6 on discharge. Lipase also normalized. DISCHARGE PLANS AND INSTRUCTIONS: He will follow up in the clinic in August with Dr. Holcomb as previously scheduled. He will be on magnesium oxide 400 daily. He will follow up with the GI Clinic for recurrent pancreatitis. PHYSICAL EXAMINATION: Discharge Vital Signs: Temperature 97.9, pulse 78, blood pressure 144/72, respiratory rate 16, and O2 of 98% on room air. General: He is in no acute distress. Heart: Regular rate and rhythm. S1, S2 without murmur. Lungs: Lung sounds are clear to auscultation bilaterally without crackles or wheezes. Abdomen: Positive bowel sounds. Soft and nontender. Extremities: Warm and dry. No edema. Mental Status: Alert and orientated x3. MKA: 08/25/2018 12:39:55 MODL: 08/25/2018 12:53:44 /[id number]
== END 2018-08-25 12:15 | disposition home or self-care (01) | DRG 439 ==
LOC: VM.ED 21:38 → VM.MS 08-22 00:05
PROVIDERS: ADMIT Family Medicine; ATTEND Family Medicine
DX: K85.20 Alcohol induced acute pancreatitis without necrosis or infection (principal); F10.19 Alcohol abuse with unspecified alcohol-induced disorder; E44.1 Mild protein-calorie malnutrition; Z66 Do not resuscitate; K85.10 Biliary acute pancreatitis without necrosis or infection; E87.6 Hypokalemia; E83.42 Hypomagnesemia; I10 Essential (primary) hypertension; Z68.21 Body mass index [BMI] 21.0-21.9, adult; G89.29 Other chronic pain; M25.579 Pain in unspecified ankle and joints of unspecified foot; D75.89 Other specified diseases of blood and blood-forming organs; G40.909 Epilepsy, unspecified, not intractable, without status epilepticus; E78.00 Pure hypercholesterolemia, unspecified; H35.30 Unspecified macular degeneration; H26.9 Unspecified cataract; F17.210 Nicotine dependence, cigarettes, uncomplicated; Z79.82 Long term (current) use of aspirin; Z79.899 Other long term (current) drug therapy
CPT/HCPCS: 36415; 74177; 80048; 80053; 80061; 80305-QW; 81001; 82150; 82977; 83605; 83615; 83690; 83735; 84100; 85007; 85025; 85027; 86140; 87040; 96361; 96365; 96367; 96375; 96376; 99283-GF; 99285-25; A9270-GY; C9113; J1170; J1885; J2270; J2405; J2543; J3475; J3480; J3490; J7030; J7042; J7050; Q9967

== ENCOUNTER 2018-10-04 17:14 | Inpatient (IN) | payer MEDICAID ==
[2018-10-04] MEDS ORDERED: Ondansetron 4 MG/2 ML SDV IVPUSH ONE (18:08)
[2018-10-04] MEDS ORDERED: Sodium Chloride 0.9% 1,000 ML IV ONE (18:08)
[2018-10-04] MEDS ORDERED: HYDROmorphone 1 MG/ML Syringe IVPUSH ONE ×2 (18:08→19:01)
--- NOTE | 2018-10-04 18:10 | EDM.PDOC ---
ED HPI GENERAL MEDICAL PROBLEM - General Chief Complaint: General Stated Complaint: PAIN IN ABDOMEN Time Seen by Provider: 10/04/18 18:10 Source of Information: Reports: Patient History Limitations: Reports: No Limitations - History of Present Illness INITIAL COMMENTS - FREE TEXT/NARRATIVE: Patient comes in the emergency department with complaint of abdominal pain. Patient underwent a biopsy of his pancreas earlier today. He states the procedure went well and had no complications. However 2 hours after arriving at home he began to develop severe onset of abdominal discomfort and pain. His surgeon did advise him to return to the nearest emergency department if he did experience any pain. He denies any nausea or vomiting states that the pain is generalized only throughout the lower abdominal cavity. He is unable to get comfortable unable to stand up unable to sit down. That the pain is intolerable. She denies any fever, shortness of breath, chest pain, or lower extremity swelling. Onset: Sudden Quality: Reports: Sharp, Stabbing Severity: Severe Improves with: Reports: None Worsens with: Reports: None Associated Symptoms: Reports: No Other Symptoms - Related Data Allergies Allergy/AdvReac Type Severity Reaction Status Date / Time No Known Allergies Allergy Verified 08/21/18 22:02 Home Meds: Home Meds Aspirin [Aspirin EC] 325 mg DAILY 08/02/18 [History] Halobetasol Propionate [Ultravate] 1 applic BID 08/02/18 [History] Lisinopril 20 mg DAILY 08/02/18 [History] Metoprolol Succinate [Toprol XL] 200 mg DAILY 08/02/18 [History] Triamcinolone Acetonide [Triamcinolone Acetonide 0.1% Crm] 1 applic BID [History] levETIRAcetam [Keppra] 500 mg BID 08/02/18 [History] Hydrocodone/Acetaminophen [Hydrocodon-Acetaminophen 5-325] 1 tab PO BID #0 08/25 [Rx] Magnesium Oxide 400 mg PO DAILY #30 tablet 08/25/18 [Rx] Past Medical History HEENT History: Reports: Cataract, Glaucoma, Macular Degeneration Cardiovascular History: Reports: High Cholesterol, Hypertension Gastrointestinal History: Reports: Pancreatitis Neurological History: Reports: Seizure Psychiatric History: Reports: Other (See Below) Other Psychiatric History: Chronic alcohol abuse, tobacco use, and chronic use of opioids Hematologic History: Reports: Other (See Below) Other Hematologic History: high liver enzymes. macrocytosis Dermatologic History: Reports: Eczema - Infectious Disease History Infectious Disease History: Reports: Chicken Pox, Measles - Past Surgical History Musculoskeletal Surgical History: Reports: Other (See Below) Other Musculoskeletal Surgeries/Procedures:: closed fx of distal phalanx of phalanges of hand Social & Family History - Family History Family Medical History: Noncontributory - Caffeine Use Caffeine Use: Reports: Soda, Tea ED ROS GENERAL - Review of Systems Review Of Systems: See Below Constitutional: Reports: No Symptoms HEENT: Reports: No Symptoms Respiratory: Reports: No Symptoms Cardiovascular: Reports: No Symptoms Endocrine: Reports: No Symptoms GI/Abdominal: Reports: Abdominal Pain : Reports: No Symptoms Musculoskeletal: Reports: No Symptoms Skin: Reports: No Symptoms Neurological: Reports: No Symptoms Psychiatric: Reports: No Symptoms ED EXAM, GENERAL - Physical Exam Exam: See Below Exam Limited By: No Limitations General Appearance: Alert, WD/WN, No Apparent Distress Neck: Normal Inspection, Supple, Non-Tender Respiratory/Chest: No Respiratory Distress, Lungs Clear, Normal Breath Sounds, No Accessory Muscle Use, Chest Non-Tender Cardiovascular: Normal Peripheral Pulses, Regular Rate, Rhythm, No Edema GI/Abdominal: Distended, Guarding, Rigid, Rebound, Tender, Abnormal Bowel Sounds Back Exam: Normal Inspection, Full Range of Motion Extremities: Normal Inspection, Normal Range of Motion, Non-Tender Neurological: Alert, Oriented Psychiatric: Normal Affect, Normal Mood Skin Exam: Warm Course - Orders/Labs/Meds Orders: Active Orders 24 hr Category Date Time Status AMYLASE [CHEM] Stat Lab 10/04/18 18:05 Received LIPASE [CHEM] Stat Lab 10/04/18 18:05 Received Sodium Chloride 0.9% [Saline Flush] Med 10/04/18 18:08 Active 10 ml FLUSH ASDIRECTED PRN Peripheral IV Insertion Adult [OM.PC] Stat Oth 10/04/18 18:08 Ordered Medication Orders Ceftriaxone Sodium (Rocephin) 1 gm IVPUSH DAILY@2100 BLANE Sodium Chloride (Normal Saline) 1,000 mls @ 125 mls/hr IV ASDIRECTED BLANE Metronidazole 500 mg/ Premix 100 mls @ 100 mls/hr IV Q8H BLANE Levetiracetam (Keppra) 500 mg PO BID BLANE Lisinopril (Prinivil) 20 mg PO DAILY BLANE Metoprolol Succinate (Toprol Xl) 200 mg PO DAILY BLANE Morphine Sulfate (Morphine) 2 mg IVPUSH Q2H PRN PRN Reason: Pain (severe 7-10) Ondansetron HCl (Zofran Odt) 4 mg PO Q6H PRN PRN Reason: nausea, able to take PO Sodium Chloride (Saline Flush) 10 ml FLUSH ASDIRECTED PRN PRN Reason: Keep Vein Open Labs: Laboratory Tests 10/04/18 10/04/18 Range/Units 18:05 18:05 WBC 19.4 H (4.0-10.0) x10^3/uL RBC 4.01 L (4.5-6.0) x10^6/uL Hgb 13.8 L D (14.0-18.0) g/dL Hct 41.2 (40.0-52.0) % MCV 102.7 H D (78.0-93.0) fL MCH 34.4 H (26.0-32.0) pg MCHC 33.5 (32.0-36.0) g/dL RDW Coeff of Charlie 14.1 (10.0-15.0) % Plt Count 323 D (130-400) x10^3/uL Add Manual Diff Yes Neutrophils % (Manual) 82 H (50-80) % Band Neutrophils % 3 (0-6) % Lymphocytes % (Manual) 5 L (25-50) % Reactive Lymphs % 1 H (0) % Monocytes % (Manual) 9 (2-11) % Vacuolated Monocytes 2+ moderate H Toxic Granulation Rare Platelet Estimate Adequate Macrocytosis 1+ slight H Ovalocytes 1+ slight H Rouleaux 1+ slight H Sodium 144 (136-145) mmol/L Potassium 4.3 (3.5-5.1) mmol/L Chloride 105 (98-107) mmol/L Carbon Dioxide 26 (21-32) mmol/L Anion Gap 17.3 (10-20) mmol/L BUN 11 (7-18) mg/dL Creatinine 0.8 (0.70-1.30) mg/dL Est Cr Clr Drug Dosing TNP Estimated GFR (MDRD) > 60 Glucose 163 H (74-106) mg/dL Calcium 9.9 (8.5-10.1) mg/dL Corrected Calcium 10.14 H (8.5-10.1) mg/dL Total Bilirubin 0.5 (0.2-1.0) mg/dL AST 26 (15-37) U/L ALT 17 (16-63) U/L Alkaline Phosphatase 92 (46-116) U/L Total Protein 7.7 (6.4-8.2) g/dL Albumin 3.7 (3.4-5.0) g/dL Globulin 4.0 Albumin/Globulin Ratio 0.93 Meds: Medications Generic Name Dose Route Start Last Admin Trade Name Freq PRN Reason Stop Dose Admin Ceftriaxone Sodium 1 gm 10/04/18 21:00 Rocephin IVPUSH DAILY@2100 BLANE Sodium Chloride 1,000 mls @ 125 mls/hr 10/04/18 20:15 Normal Saline IV ASDIRECTED BLANE Metronidazole 500 mg/ Premix 100 mls @ 100 mls/hr 10/04/18 21:00 IV Q8H BLANE Levetiracetam 500 mg 10/05/18 08:00 Keppra PO BID BLANE Lisinopril 20 mg 10/05/18 08:00 Prinivil PO DAILY BLANE Metoprolol Succinate 200 mg 10/05/18 08:00 Toprol Xl PO DAILY BLANE Morphine Sulfate 2 mg 10/04/18 20:00 Morphine IVPUSH Q2H PRN Pain (severe 7-10) Ondansetron HCl 4 mg 10/04/18 20:00 Zofran Odt PO Q6H PRN nausea, able to take PO Sodium Chloride 10 ml 10/04/18 18:08 Saline Flush FLUSH ASDIRECTED PRN Keep Vein Open Discontinued Medications Generic Name Dose Route Start Last Admin Trade Name Freq PRN Reason Stop Dose Admin Hydromorphone HCl 1 mg 10/04/18 18:08 10/04/18 18:15 Dilaudid IVPUSH 10/04/18 18:09 1 mg ONETIME ONE Administration Hydromorphone HCl 1 mg 10/04/18 19:01 10/04/18 19:07 Dilaudid IVPUSH 10/04/18 19:02 1 mg ONETIME ONE Administration Sodium Chloride 1,000 mls @ 1,000 mls/hr 10/04/18 18:08 10/04/18 18:16 Normal Saline IV 10/04/18 19:07 1,000 mls/hr ONETIME ONE Administration Ondansetron HCl 4 mg 10/04/18 18:08 10/04/18 18:17 Zofran IVPUSH 10/04/18 18:09 4 mg ONETIME ONE Administration - Re-Assessments/Exams Free Text/Narrative Re-Assessment/Exam: 10/04/18 20:29 Pt is resting more comfortably on the bed. He is still complaining of pain and feels the Dilaudid is not helping enough to control the pain. Currently he would like to be admitted here at [place] vs being transferred to [place]. Departure - Departure Time of Disposition: 20:00 Disposition: Admitted As Inpatient 64 Condition: Good Clinical Impression: History of postoperative complication of surgical procedure Pancreatitis, acute Qualifiers: Pancreatitis type: other Acute pancreatitis complication: unspecified Qualified Code(s): K85.80 - Other acute pancreatitis without necrosis or infection - Discharge Information *PRESCRIPTION DRUG MONITORING PROGRAM REVIEWED*: Not Applicable *COPY OF PRESCRIPTION DRUG MONITORING REPORT IN PATIENT MARILYNN: Not Applicable - Problem List Review Problem List Initiated/Reviewed/Updated: Yes - My Orders Last 24 Hours: My Active Orders 10/04/18 18:05 AMYLASE [CHEM] Stat LIPASE [CHEM] Stat 10/04/18 18:08 Sodium Chloride 0.9% [Saline Flush] 10 ml FLUSH ASDIRECTED PRN Peripheral IV Insertion Adult [OM.PC] Stat - Assessment/Plan Admission H&P: Please use this note as an admission H&P Last 24 Hours: My Active Orders 10/04/18 18:05 AMYLASE [CHEM] Stat LIPASE [CHEM] Stat 10/04/18 18:08 Sodium Chloride 0.9% [Saline Flush] 10 ml FLUSH ASDIRECTED PRN Peripheral IV Insertion Adult [OM.PC] Stat Assessment:: 1. abdominal pain 2. Pancreatitis postsurgical biopsy Plan: 1. Labs completed in ER. results reviewed with the pt 2. Dilaudid and Zofran given for comfort 3. IV fluids given 4. CT scan completed and results reviewed with the pt. 5. Consultation completed with GI surgeon neon electrician who recommends this patient to be admitted to acute care for further monitoring and mangagement. He recommends Rocephin/Flagyl for antibiotic coverages and re-evaluate in the am. If pt continues to improve transfer to a higher level of care is not warranted. However patient continues to deteriorate recommendation is to transfer to higher level of care. 6. Patient agrees with the above plan 7. Pt will be admitted to acute care under my services through the weekend. 8. Labs will be ordered for the a.m. 9. Rocephin and Flagyl have been given 10. IV fluids normal saline at 125mls/hr for hydration 11. Patient will remain nothing by mouth 12. Pain medication and antinausea medication have been ordered to help keep the pt comfortable 13. All questions and concerns addressed prior to admission
[2018-10-04 18:42] LABS: CHLORIDE,CL 105 mmol/L (98-107); SODIUM,NA 144 mmol/L (136-145)
[2018-10-04 18:43] LABS: ANION GAP 17.3 mmol/L (10-20)
--- NOTE | 2018-10-04 18:58 | CT ---
[id number] CT/CT Abdomen Pelvis WO IV EXAM: CT Abdomen Pelvis WO IV CLINICAL DATA: ABDOMEN PAIN,POST BIOPSY TODAY. COMPARISON STUDY: August 21, 2018. FINDINGS: Atelectasis and/or scarring at the lung bases. The lung bases are otherwise clear. Coronary artery disease. The heart is borderline enlarged. The liver, spleen, adrenal glands and kidneys are unremarkable. Cholelithiasis without evidence of acute cholecystitis. There is peripancreatic fat stranding with loss of the normal fat lobulations. This is most pronounced in the region of the pancreatic head. Additionally there are multiple calcifications likely sequela of chronic pancreatitis. There are no fluid collections or obvious evidence of necrosis on this noncontrast study. The main pancreatic duct is nondilated. Overall, these findings are likely improved slightly when compared to the study from August 21, 2018. Circumferential thickening of the 2nd and 3rd portion duodenum adjacent to the peripancreatic inflammation. This is likely reactive in nature. No lymphadenopathy, free fluid, or pneumoperitoneum. Atherosclerotic calcifications of the aorta and its branches appear Scattered changes of spondylosis the spine. No fracture or osseous lesion. IMPRESSION: 1. Findings suggestive of acute on chronic pancreatitis which overall looks slightly improved when compared to the prior study. There is thickening of the 2nd and 3rd portion of the duodenum likely reactive in nature. Sergio Norman DO 10/04/18 [id number] Thank you for allowing us to participate in the care of your patient.
[2018-10-04] MEDS ORDERED: Ondansetron 4 MG Tab.DIS PO PRN (20:00)
[2018-10-04] MEDS: Sodium Chloride 0.9% 1,000 ML IV SCH (20:37)
[2018-10-04] MEDS: cefTRIAXone 1 GM Vial IVPUSH SCH (20:47)
[2018-10-04] MEDS: Sodium Chloride 0.9% 10 ML Syringe FLUSH PRN (20:51)
[2018-10-04] MEDS: metroNIDAZOLE/Normal Saline 500 MG in Premix Bag 1 BAG IV SCH (20:57)
[2018-10-05] MEDS: Morphine 2 MG/ML Syringe IVPUSH PRN ×4 (00:23→09:27)
[2018-10-05] MEDS ORDERED: Pneumococcal 23-Valent Conjugate Vaccine 0.5 ML Syringe IM ONE ×2 (02:22→10:00)
[2018-10-05] MEDS: metroNIDAZOLE/Normal Saline 500 MG in Premix Bag 1 BAG IV SCH ×3 (04:18→20:23)
[2018-10-05] MEDS: Sodium Chloride 0.9% 1,000 ML IV SCH ×3 (07:14→20:18)
[2018-10-05] MEDS: Lisinopril 20 MG Tab PO SCH (08:44)
[2018-10-05] MEDS: levETIRAcetam 500 MG Tab PO SCH ×2 (08:44→20:25)
[2018-10-05] MEDS: Metoprolol Succinate 50 MG Tab.ER PO SCH (08:45)
[2018-10-05 08:46] LABS: CHLORIDE,CL 108 mmol/L (98-107); SODIUM,NA 143 mmol/L (136-145)
[2018-10-05 08:57] LABS: ANION GAP 14.4 mmol/L (10-20)
--- NOTE | 2018-10-05 13:43 | PCM.PN ---
- General Info Date of Service: 10/05/18 Admission Dx/Problem (Free Text): 1. pancreatitis 2. abdominal pain Functional Status: Reports: Ambulating, Urinating. Denies: Pain Controlled (pt is not tolerating the morphine. It has not helped with the pain ), Tolerating Diet (pt remains NPO. eating ice chips with no difficulty ) - Review of Systems General: Reports: Fatigue, Malaise HEENT: Reports: No Symptoms Pulmonary: Reports: No Symptoms Cardiovascular: Reports: No Symptoms Gastrointestinal: Reports: Abdominal Pain, Decreased Appetite, Nausea Genitourinary: Reports: No Symptoms Musculoskeletal: Reports: No Symptoms Skin: Reports: No Symptoms Neurological: Reports: No Symptoms Psychiatric: Reports: No Symptoms - Patient Data Vitals - Most Recent: Last Vital Signs Temp 36.9 C 10/05/18 10:00 Pulse 64 10/05/18 10:00 Resp 20 10/05/18 10:00 BP 130/79 10/05/18 10:00 Pulse Ox 94 L 10/05/18 10:00 Weight - Most Recent: 68.946 kg I&O - Last 24 Hours: Intake & Output 10/04/18 10/05/18 10/05/18 22:59 06:59 14:59 Intake Total 100 1100 Output Total 600 Balance 100 500 Lab Results Last 24 Hours: Laboratory Results - last 24 hr 10/04/18 10/04/18 10/04/18 Range/Units 18:05 18:05 18:05 WBC 19.4 H (4.0-10.0) x10^3/uL RBC 4.01 L (4.5-6.0) x10^6/uL Hgb 13.8 L D (14.0-18.0) g/dL Hct 41.2 (40.0-52.0) % MCV 102.7 H D (78.0-93.0) fL MCH 34.4 H (26.0-32.0) pg MCHC 33.5 (32.0-36.0) g/dL RDW Coeff of Charlie 14.1 (10.0-15.0) % Plt Count 323 D (130-400) x10^3/uL Neut % (Auto) (50.0-80.0) % Lymph % (Auto) (25.0-50.0) % [place] % (Auto) (2.0-11.0) % Eos % (Auto) (0.0-4.0) % Baso % (Auto) (0.2-1.2) % Add Manual Diff Yes Neutrophils % (Manual) 82 H (50-80) % Band Neutrophils % 3 (0-6) % Lymphocytes % (Manual) 5 L (25-50) % Reactive Lymphs % 1 H (0) % Monocytes % (Manual) 9 (2-11) % Vacuolated Monocytes 2+ moderate H Toxic Granulation Rare Platelet Estimate Adequate Macrocytosis 1+ slight H Ovalocytes 1+ slight H Rouleaux 1+ slight H Sodium 144 (136-145) mmol/L Potassium 4.3 (3.5-5.1) mmol/L Chloride 105 (98-107) mmol/L Carbon Dioxide 26 (21-32) mmol/L Anion Gap 17.3 (10-20) mmol/L BUN 11 (7-18) mg/dL Creatinine 0.8 (0.70-1.30) mg/dL Est Cr Clr Drug Dosing TNP Estimated GFR (MDRD) > 60 Glucose 163 H (74-106) mg/dL Calcium 9.9 (8.5-10.1) mg/dL Corrected Calcium 10.14 H (8.5-10.1) mg/dL Total Bilirubin 0.5 (0.2-1.0) mg/dL AST 26 (15-37) U/L ALT 17 (16-63) U/L Alkaline Phosphatase 92 (46-116) U/L Total Protein 7.7 (6.4-8.2) g/dL Albumin 3.7 (3.4-5.0) g/dL Globulin 4.0 Albumin/Globulin Ratio 0.93 Amylase 1653 H (25-115) U/L Lipase 35447 H (73-393) U/L 10/05/18 10/05/18 Range/Units 07:26 07:26 WBC 17.2 H (4.0-10.0) x10^3/uL RBC 3.48 L (4.5-6.0) x10^6/uL Hgb 11.7 L D (14.0-18.0) g/dL Hct 36.7 L (40.0-52.0) % MCV 105.5 H (78.0-93.0) fL MCH 33.6 H (26.0-32.0) pg MCHC 31.9 L (32.0-36.0) g/dL RDW Coeff of Charlie 13.8 (10.0-15.0) % Plt Count 357 (130-400) x10^3/uL Neut % (Auto) 72.6 (50.0-80.0) % Lymph % (Auto) 13.8 L (25.0-50.0) % [place] % (Auto) 13.4 H (2.0-11.0) % Eos % (Auto) 0.0 (0.0-4.0) % Baso % (Auto) 0.2 (0.2-1.2) % Add Manual Diff Neutrophils % (Manual) (50-80) % Band Neutrophils % (0-6) % Lymphocytes % (Manual) (25-50) % Reactive Lymphs % (0) % Monocytes % (Manual) (2-11) % Vacuolated Monocytes Toxic Granulation Platelet Estimate Macrocytosis Ovalocytes Rouleaux Sodium 143 (136-145) mmol/L Potassium 3.4 L (3.5-5.1) mmol/L Chloride 108 H (98-107) mmol/L Carbon Dioxide 24 (21-32) mmol/L Anion Gap 14.4 (10-20) mmol/L BUN 9 (7-18) mg/dL Creatinine 0.7 (0.70-1.30) mg/dL Est Cr Clr Drug Dosing 116.28 Estimated GFR (MDRD) > 60 Glucose 114 H (74-106) mg/dL Calcium 8.8 (8.5-10.1) mg/dL Corrected Calcium (8.5-10.1) mg/dL Total Bilirubin (0.2-1.0) mg/dL AST (15-37) U/L ALT (16-63) U/L Alkaline Phosphatase (46-116) U/L Total Protein (6.4-8.2) g/dL Albumin (3.4-5.0) g/dL Globulin Albumin/Globulin Ratio Amylase (25-115) U/L Lipase (73-393) U/L Med Orders - Current: Current Medications Ceftriaxone Sodium (Rocephin) 1 gm IVPUSH DAILY@2100 [facility] Last Admin: 10/04/18 20:47 Dose: 1 gm Hydromorphone HCl (Dilaudid) 1 mg IVPUSH Q4H PRN PRN Reason: Pain Sodium Chloride (Normal Saline) 1,000 mls @ 125 mls/hr IV ASDIRECTED [facility] Last Admin: 10/05/18 07:14 Dose: 125 mls/hr Metronidazole 500 mg/ Premix 100 mls @ 100 mls/hr IV Q8H [facility] Last Admin: 10/05/18 04:18 Dose: 100 mls/hr Ketorolac Tromethamine (Toradol) 15 mg IVPUSH Q6H [facility] Levetiracetam (Keppra) 500 mg PO BID [facility] Last Admin: 10/05/18 08:44 Dose: 500 mg Lisinopril (Prinivil) 20 mg PO DAILY [facility] Last Admin: 10/05/18 08:44 Dose: 20 mg Metoprolol Succinate (Toprol Xl) 200 mg PO DAILY [facility] Last Admin: 10/05/18 08:45 Dose: 200 mg Ondansetron HCl (Zofran Odt) 4 mg PO Q6H PRN PRN Reason: nausea, able to take PO Last Admin: 10/05/18 00:32 Dose: 4 mg Sodium Chloride (Saline Flush) 10 ml FLUSH ASDIRECTED PRN PRN Reason: Keep Vein Open Last Admin: 10/04/18 20:51 Dose: 10 ml Discontinued Medications Hydromorphone HCl (Dilaudid) 1 mg IVPUSH ONETIME ONE Stop: 10/04/18 18:09 Last Admin: 10/04/18 18:15 Dose: 1 mg Hydromorphone HCl (Dilaudid) 1 mg IVPUSH ONETIME ONE Stop: 10/04/18 19:02 Last Admin: 10/04/18 19:07 Dose: 1 mg Sodium Chloride (Normal Saline) 1,000 mls @ 1,000 mls/hr IV ONETIME ONE Stop: 10/04/18 19:07 Last Admin: 10/04/18 18:16 Dose: 1,000 mls/hr Morphine Sulfate (Morphine) 2 mg IVPUSH Q2H PRN PRN Reason: Pain (severe 7-10) Last Admin: 10/05/18 09:27 Dose: 2 mg Ondansetron HCl (Zofran) 4 mg IVPUSH ONETIME ONE Stop: 10/04/18 18:09 Last Admin: 10/04/18 18:17 Dose: 4 mg Pneumococcal Polyvalent Vaccine (Pneumovax 23) 25 mcg IM .ONCE ONE Stop: 10/05/18 10:01 - Exam General: Alert, Oriented HEENT: Pupils Equal, Pupils Reactive, EOMI, Mucous Membr. Moist/[place] Neck: Supple Cardiovascular: Regular Rate, Regular Rhythm GI/Abdominal Exam: Distended, Tender, Abnormal Bowel Sounds. No: Guarding, Rigid, Rebound Back Exam: Normal Inspection, Full Range of Motion Extremities: Normal Inspection, Normal Range of Motion, Non-Tender, No Pedal Edema Skin: Warm, Dry, Intact Neurological: No New Focal Deficit Psy/Mental Status: Alert, Normal Affect, Normal Mood - Problem List Review Problem List Initiated/Reviewed/Updated: Yes - My Orders Last 24 Hours: My Active Orders 10/04/18 18:08 Sodium Chloride 0.9% [Saline Flush] 10 ml FLUSH ASDIRECTED PRN Peripheral IV Insertion Adult [OM.PC] Stat 10/04/18 19:47 Admission Status [Patient Status] [ADT] Routine 10/04/18 20:00 Ambulate [RC] 08,20 Ondansetron [Zofran ODT] 4 mg PO Q6H PRN Resuscitation Status Routine 10/04/18 20:03 Oxygen Therapy [RC] .PRN VTE/DVT Education [RC] .PRN Vital Signs [RC] 06,10,14,18,22,02 10/04/18 20:14 Dietary Supplements [RC] 0730,1730 10/04/18 20:15 Sodium Chloride 0.9% [Normal Saline] 1,000 ml IV ASDIRECTED 10/04/18 21:00 cefTRIAXone [Rocephin] 1 gm IVPUSH DAILY@2100 metroNIDAZOLE/Normal Saline [Flagyl 500 MG in NS 100 ML] 500 mg Premix Bag 1 bag IV Q8H 10/04/18 Dinner Nothing per Oral Now Diet [DIET] 10/05/18 08:00 Lisinopril [Prinivil] 20 mg PO DAILY Metoprolol Succinate [Toprol XL] 200 mg PO DAILY levETIRAcetam [Keppra] 500 mg PO BID 10/05/18 13:34 HYDROmorphone [Dilaudid] 1 mg IVPUSH Q4H PRN 10/05/18 13:45 Ketorolac [Toradol] 15 mg IVPUSH Q6H 10/06/18 05:11 AMYLASE [CHEM] AM LIPASE [CHEM] AM - Assessment Assessment:: 1. Pancreatitis 2. Abdominal pain - Plan Plan:: Patient came in the emergency department with complaint of abdominal pain. Patient underwent a biopsy of his pancreas yesterday. Labs were completed and consultation was completed with [place] Surgeon who completed the procedure. Patient developed pancreatitis. Patient was admitted to the hospital with IV antibiotics and pain medications overnight. Patient had an uneventful night. Vital signs remained stable. Patient remained afebrile. Continue to keep patient 's nothing by mouth overnight. Patient is tolerating ice chips this morning. Patient's pain control continues to be uncontrolled. Patient does have a history after reviewing records that morphine did not work first pancreatitis. Did switch over orders to Dilaudid and Toradol this morning. Patient states that he is tolerating the medication much better now. Patient will continue on antibiotics. Labs are beginning to show improvement. Plan: 1. Draw labs in the am 2. Continue with antibiotic treatment 3. increase oral intake as he tolerated 4. Ambulate in the halls 5. Continue IV fluids 6. Continue to control pain with IV medications
[2018-10-05] MEDS ORDERED: Ketorolac 15 MG/ML SDV IVPUSH SCH (13:45)
[2018-10-05] MEDS: HYDROmorphone 1 MG/ML Syringe IVPUSH PRN ×2 (13:53→18:36)
[2018-10-05] MEDS: Ketorolac 15 MG/ML SDV IVPUSH PRN (16:09)
[2018-10-05] MEDS: Nicotine 21 MG/24 Hr Patch TRDERM SCH (20:15)
[2018-10-05] MEDS: cefTRIAXone 1 GM Vial IVPUSH SCH (20:25)
[2018-10-06] MEDS: Sodium Chloride 0.9% 10 ML Syringe FLUSH PRN ×2 (00:31→04:36)
[2018-10-06] MEDS: HYDROmorphone 1 MG/ML Syringe IVPUSH PRN ×3 (00:32→09:10)
[2018-10-06] MEDS: metroNIDAZOLE/Normal Saline 500 MG in Premix Bag 1 BAG IV SCH (04:37)
[2018-10-06] MEDS ORDERED: Omeprazole 20 MG Cap.CR PO SCH (07:00)
[2018-10-06] MEDS: Ketorolac 15 MG/ML SDV IVPUSH PRN (07:52)
[2018-10-06] MEDS: Metoprolol Succinate 50 MG Tab.ER PO SCH (07:55)
[2018-10-06] MEDS: levETIRAcetam 500 MG Tab PO SCH (07:55)
[2018-10-06] MEDS: Nicotine 21 MG/24 Hr Patch TRDERM SCH (07:56)
[2018-10-06] MEDS: Lisinopril 20 MG Tab PO SCH (07:56)
[2018-10-06 08:18] LABS: CHLORIDE,CL 108 mmol/L (98-107); SODIUM,NA 143 mmol/L (136-145)
[2018-10-06 08:22] LABS: ANION GAP 12.9 mmol/L (10-20)
[2018-10-06] MEDS ORDERED: Potassium Chloride 10 MEQ in Premix Bag 1 BAG IV ONE (09:04)
[2018-10-06] MEDS ORDERED: HYDROmorphone 1 MG/ML Syringe IVPUSH PRN (09:44)
[2018-10-06] MEDS ORDERED: HYDROmorphone 1 MG/ML Syringe IVPUSH STA (09:45)
[2018-10-06] MEDS: Sodium Chloride 0.9% 1,000 ML IV SCH (10:28)
--- NOTE | 2018-10-06 10:45 | PCM.DCSUM1 ---
Discharge Summary - Hospital Course HPI Initial Comments: Patient came in the emergency department with complaint of abdominal pain. Patient underwent a biopsy of his pancreas yesterday. Labs were completed and consultation was completed with [place] Surgeon who completed the procedure. Patient developed pancreatitis post surgical biopsy. Patient was admitted to the hospital with IV antibiotics and pain medications over the last 2 days. Patient had an uneventful night. Vital signs remained stable. Patient remained afebrile. Continue to keep patient's nothing by mouth overnight. Patient is tolerating ice chips this morning. Patient's pain control continues to be uncontrolled. Patient does have a history after reviewing records that morphine did not work first pancreatitis. He was switched to Dilaudid and Toradol yesterday. He believed he felt much better after the first dose but since the first dose his pain has not been able to be controlled. Pt is requesting to be seen by his surgeon for his pain is severe compared to his other pancreatitis episodes in the past. Labs for the most part continue to show improvement however his potassium has decreased. He was given a 10meq this am to help with replenishing. Dr. Kirkland was contacted regarding the patients states. He agrees higher level of care is warranted and has accepted care. Pt will be transported via ambulance as an acute transfer to [facility]. Diagnosis: Stroke: No - Discharge Data Discharge Date: 10/06/18 Discharge Disposition: DC/Tfer to Acute Hospital 02 Condition: Good - Discharge Diagnosis/Problem(s) (1) Hypokalemia SNOMED Code(s): 52032072 ICD Code: E87.6 - HYPOKALEMIA Status: Acute Current Visit: Yes (2) Acute pain SNOMED Code(s): 267926724 ICD Code: R52 - PAIN, UNSPECIFIED Status: Acute Current Visit: Yes (3) History of postoperative complication of surgical procedure SNOMED Code(s): 474903013 ICD Code: Z87.898 - PERSONAL HISTORY OF OTHER SPECIFIED CONDITIONS; Z98.890 - OTHER SPECIFIED POSTPROCEDURAL STATES Status: Acute Current Visit: Yes (4) Pancreatitis, acute SNOMED Code(s): 540873377 ICD Code: K85.90 - ACUTE PANCREATITIS WITHOUT NECROSIS OR INFECTION, UNSP Status: Acute Current Visit: Yes Qualifiers: Pancreatitis type: other Acute pancreatitis complication: unspecified Qualified Code(s): K85.80 - Other acute pancreatitis without necrosis or infection - Patient Instructions Diet: NPO Activity: As Tolerated - Discharge Plan *PRESCRIPTION DRUG MONITORING PROGRAM REVIEWED*: Not Applicable *COPY OF PRESCRIPTION DRUG MONITORING REPORT IN PATIENT MARILYNN: Not Applicable Home Medications: Home Meds Aspirin [Aspirin EC] 325 mg DAILY 08/02/18 [History] Halobetasol Propionate [Ultravate] 1 applic BID 08/02/18 [History] Lisinopril 20 mg DAILY 08/02/18 [History] Metoprolol Succinate [Toprol XL] 200 mg DAILY 08/02/18 [History] Triamcinolone Acetonide [Triamcinolone Acetonide 0.1% Crm] 1 applic BID [History] levETIRAcetam [Keppra] 500 mg BID 08/02/18 [History] Hydrocodone/Acetaminophen [Hydrocodon-Acetaminophen 5-325] 1 tab PO BID #0 08/25 [Rx] Magnesium Oxide 400 mg PO DAILY #30 tablet 08/25/18 [Rx] Omeprazole 20 mg PO DAILY 10/05/18 [History] Potassium Chloride 1 tab PO DAILY 10/05/18 [History] Forms: Interfacility Transfer EMTALA Referrals: PCP,None [Ordering Only Provider] - - Discharge Summary/Plan Comment DC Time >30 min.: Yes (consult, transfer, and counseling) - General Info Admission Dx/Problem (Free Text: 1. pancreatitis 2. abdominal pain Functional Status: Reports: Ambulating, Urinating. Denies: Pain Controlled, Tolerating Diet - Review of Systems General: Reports: Malaise HEENT: Reports: No Symptoms Pulmonary: Reports: No Symptoms Cardiovascular: Reports: No Symptoms Gastrointestinal: Reports: Abdominal Pain, Decreased Appetite, Nausea Genitourinary: Reports: No Symptoms Musculoskeletal: Reports: No Symptoms Skin: Reports: No Symptoms Neurological: Reports: No Symptoms Psychiatric: Reports: No Symptoms - Patient Data Vitals - Most Recent: Last Vital Signs Temp 37.1 C 10/06/18 10:00 Pulse 82 10/06/18 10:00 Resp 20 10/06/18 06:00 BP 130/76 10/06/18 10:00 Pulse Ox 82 L 10/06/18 10:00 Weight - Most Recent: 68.946 kg I&O - Last 24 hours: Intake & Output 10/05/18 10/06/18 10/06/18 22:59 06:59 14:59 Intake Total 4301 1686 0 Output Total 600 Balance 2391 1086 0 Lab Results - Last 24 hrs: Laboratory Results - last 24 hr 10/06/18 10/06/18 Range/Units 07:35 07:35 WBC 16.9 H (4.0-10.0) x10^3/uL RBC 3.38 L (4.5-6.0) x10^6/uL Hgb 11.4 L (14.0-18.0) g/dL Hct 35.7 L (40.0-52.0) % MCV 105.6 H (78.0-93.0) fL MCH 33.7 H (26.0-32.0) pg MCHC 31.9 L (32.0-36.0) g/dL RDW Coeff of Charlie 14.0 (10.0-15.0) % Plt Count 364 (130-400) x10^3/uL Neut % (Auto) 66.4 (50.0-80.0) % Lymph % (Auto) 16.4 L (25.0-50.0) % Yell % (Auto) 16.7 H (2.0-11.0) % Eos % (Auto) 0.3 (0.0-4.0) % Baso % (Auto) 0.2 (0.2-1.2) % Sodium 143 (136-145) mmol/L Potassium 2.9 L* (3.5-5.1) mmol/L Chloride 108 H (98-107) mmol/L Carbon Dioxide 25 (21-32) mmol/L Anion Gap 12.9 (10-20) mmol/L BUN 6 L (7-18) mg/dL Creatinine 0.7 (0.70-1.30) mg/dL Est Cr Clr Drug Dosing 116.28 mL/min Estimated GFR (MDRD) > 60 Glucose 89 (74-106) mg/dL Calcium 8.6 (8.5-10.1) mg/dL Corrected Calcium 9.56 (8.5-10.1) mg/dL Total Bilirubin 0.5 (0.2-1.0) mg/dL AST 17 (15-37) U/L ALT 11 L (16-63) U/L Alkaline Phosphatase 62 (46-116) U/L Total Protein 6.1 L (6.4-8.2) g/dL Albumin 2.8 L (3.4-5.0) g/dL Globulin 3.3 Albumin/Globulin Ratio 0.85 Amylase 185 H (25-115) U/L Lipase 324 (73-393) U/L Med Orders - Current: Current Medications Ceftriaxone Sodium (Rocephin) 1 gm IVPUSH DAILY@2100 [facility] Last Admin: 10/05/18 20:25 Dose: 1 gm Hydromorphone HCl (Dilaudid) 1 mg IVPUSH Q2H PRN PRN Reason: Pain Sodium Chloride (Normal Saline) 1,000 mls @ 125 mls/hr IV ASDIRECTED [facility] Last Admin: 10/06/18 10:28 Dose: 125 mls/hr Metronidazole 500 mg/ Premix 100 mls @ 100 mls/hr IV Q8H [facility] Last Admin: 10/06/18 04:37 Dose: 100 mls/hr Ketorolac Tromethamine (Toradol) 15 mg IVPUSH Q6H PRN PRN Reason: Pain (severe 7-10) Last Admin: 10/06/18 07:52 Dose: 15 mg Levetiracetam (Keppra) 500 mg PO BID [facility] Last Admin: 10/06/18 07:55 Dose: 500 mg Lisinopril (Prinivil) 20 mg PO DAILY [facility] Last Admin: 10/06/18 07:56 Dose: 20 mg Metoprolol Succinate (Toprol Xl) 200 mg PO DAILY [facility] Last Admin: 10/06/18 07:55 Dose: 200 mg Nicotine (Habitrol) 21 mg TRDERM DAILY [facility] Last Admin: 10/06/18 07:56 Dose: 21 mg Omeprazole (Omeprazole) 20 mg PO ACBREAKFAST [facility] Last Admin: 10/06/18 06:15 Dose: 20 mg Ondansetron HCl (Zofran Odt) 4 mg PO Q6H PRN PRN Reason: nausea, able to take PO Last Admin: 10/05/18 00:32 Dose: 4 mg Sodium Chloride (Saline Flush) 10 ml FLUSH ASDIRECTED PRN PRN Reason: Keep Vein Open Last Admin: 10/06/18 04:36 Dose: 10 ml Discontinued Medications Hydromorphone HCl (Dilaudid) 1 mg IVPUSH ONETIME ONE Stop: 10/04/18 18:09 Last Admin: 10/04/18 18:15 Dose: 1 mg Hydromorphone HCl (Dilaudid) 1 mg IVPUSH ONETIME ONE Stop: 10/04/18 19:02 Last Admin: 10/04/18 19:07 Dose: 1 mg Hydromorphone HCl (Dilaudid) 1 mg IVPUSH Q4H PRN PRN Reason: Pain Last Admin: 10/06/18 09:10 Dose: 1 mg Hydromorphone HCl (Dilaudid) 1 mg IVPUSH NOW STA Stop: 10/06/18 09:46 Last Admin: 10/06/18 10:02 Dose: 1 mg Sodium Chloride (Normal Saline) 1,000 mls @ 1,000 mls/hr IV ONETIME ONE Stop: 10/04/18 19:07 Last Admin: 10/04/18 18:16 Dose: 1,000 mls/hr Potassium Chloride 10 meq/ (Premix) 50 mls @ 50 mls/hr IV ONETIME ONE Stop: 10/06/18 10:03 Last Admin: 10/06/18 09:27 Dose: 50 mls/hr Morphine Sulfate (Morphine) 2 mg IVPUSH Q2H PRN PRN Reason: Pain (severe 7-10) Last Admin: 10/05/18 09:27 Dose: 2 mg Ondansetron HCl (Zofran) 4 mg IVPUSH ONETIME ONE Stop: 10/04/18 18:09 Last Admin: 10/04/18 18:17 Dose: 4 mg Pneumococcal Polyvalent Vaccine (Pneumovax 23) 25 mcg IM .ONCE ONE Stop: 10/05/18 10:01 Last Admin: 10/05/18 14:38 Dose: 25 mcg - Exam General: Reports: Alert, Oriented HEENT: Reports: Pupils Equal, Pupils Reactive, EOMI Neck: Reports: Supple Lungs: Reports: Clear to Auscultation, Normal Respiratory Effort Cardiovascular: Reports: Regular Rate, Regular Rhythm GI/Abdominal Exam: Distended, Guarding, Tender, Abnormal Bowel Sounds Back Exam: Reports: Normal Inspection, Full Range of Motion Extremities: Normal Inspection, Normal Range of Motion, Non-Tender, No Pedal Edema, Normal Capillary Refill Skin: Reports: Warm, Intact Wound/Incisions: Reports: Healing Well Psy/Mental Status: Reports: Alert, Normal Affect, Normal Mood
== END 2018-10-06 11:30 | disposition short-term general hospital (02) | DRG 393 ==
LOC: VM.ED 17:14 → VM.MS 19:47
PROVIDERS: ADMIT Nurse Practitioner; ATTEND Nurse Practitioner
DX: K91.89 Other postprocedural complications and disorders of digestive system (principal); K85.80 Other acute pancreatitis without necrosis or infection; Y84.8 Other medical procedures as the cause of abnormal reaction of the patient, or of later complication, without mention of misadventure at the time of the procedure; R10.9 Unspecified abdominal pain; E87.6 Hypokalemia; E78.00 Pure hypercholesterolemia, unspecified; I10 Essential (primary) hypertension; H40.9 Unspecified glaucoma; H26.9 Unspecified cataract; F10.10 Alcohol abuse, uncomplicated; D75.89 Other specified diseases of blood and blood-forming organs; F17.200 Nicotine dependence, unspecified, uncomplicated; L30.9 Dermatitis, unspecified; R56.9 Unspecified convulsions; H35.30 Unspecified macular degeneration; Z79.82 Long term (current) use of aspirin; Z79.899 Other long term (current) drug therapy; Z79.891 Long term (current) use of opiate analgesic
CPT/HCPCS: 36415; 74176; 80048; 80053; 82150; 83690; 85025; 90732; 96361; 96374; 96375; 96376; 99285-25; A9270-GY; J0696; J1170; J1885; J2270; J2405; J3480; J3490; J7030